=== PATIENT | male | born 1985 | race Caucasian/White ===

== ENCOUNTER 2018-03-30 03:01 | Inpatient (IN) | payer OTHER ==
[~2018-03-30] VITALS: Ht 180.3 cm; Wt 67.1 kg
[2018-03-30 05:25] VITALS: Ht 180.3 cm; Wt 67.1 kg
--- NOTE | 2018-03-30 05:30 | NUR ---
Admitted 32 y/o male from [facility] with CC of worsening Pressure Ulcer. Transported pt via gurney accompanied by 2 EMS and a friend- Nikita. No sob. No resp distress. Alert and oriented x4. Denies pain upon admission. Pt oriented to environment, use telephone, call light and visitation policy. Belongings checked. Called Dr. Gonzalez and made aware of new admission. Needs attended and anticipated. Wound assessment not done, picture taken. Remaining assessment will be done by am shift nurse. For wound care consult, Wound culture and ff-up LALM. Call light within reach. Will continue to monitor pt.
[2018-03-30 06:08] VITALS: BP 106/54; PULSE 101; RESP 20
[2018-03-30] MEDS ORDERED: DOCUSATE SODIUM 100 MG CAP PO PRN (06:30)
[2018-03-30] MEDS ORDERED: ONDANSETRON 4 MG INJ IV PRN (06:30)
[2018-03-30] MEDS ORDERED: NACL 0.9% 3 ML SYG IV SCH (06:30)
[2018-03-30] MEDS ORDERED: BISACODYL (EC) 5 MG TAB PO PRN (06:30)
[2018-03-30] MEDS ORDERED: ACETAMINOPHEN 325 MG TAB PO PRN (06:30)
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
[2018-03-30] MEDS ORDERED: VANCOMYCIN IV PER PHARMACY XX SCH (07:00)
[2018-03-30 07:15] VITALS: BP 128/66; PULSE 61; RESP 16
--- NOTE | 2018-03-30 08:20 | NUR ---
VANCOMYCIN PER PHARMACY NOTE PT WT: 67.1 KG PT HT: 5'11" SKIN ULCER CONFIRMED WITH RPH AT [facility] IN [place] THAT PT RECIEVED VANCO 1GM (14.9 MG/KG) THERE AT 0233 IN THE AM ([facility] PHONE NUMBER [phone]). START MAINTENANCE DOSE OF VANCO 1 GRAM IV [id number] FOR NOW. PHARMACY WILL FOLLOW. THANK YOU.
[2018-03-30] MEDS ORDERED: PIPER-TAZO 2.25 GM (PMX) 50 ML IVPB SCH (08:30)
[2018-03-30] MEDS ORDERED: IOHEXOL 300MG/ML 150 ML BTL ONE (09:05)
[2018-03-30] MEDS ORDERED: SOD CHLORIDE 0.9% 100 ML ONE (09:05)
--- NOTE | 2018-03-30 09:40 | NUR ---
Procedure Ordered:CT ABD/PEL W/CONTRAST Reason for Exam Today:SACRAL ULCERS Previous Exams: Allergies:NKDA Current Medications Taken: Glucophage ( ) Metformin ( ) Previous reaction to contrast media: Yes ( ) No ( X) : Yes ( ) No ( X) Asthma: Yes ( ) No (X ) Diabetes: Yes ( ) No ( X) Myeloma: Yes ( ) No (X ) Heart Disease: Yes ( ) No (X ) Cardiac Disease: Yes ( ) No (X ) Kidney Disease: Yes ( ) No ( X) Vascular Disease: Yes ( ) No ( X) Patient Teaching done: Yes ( ) No ( ) Helmet Hat Brim Cutter Used: Yes ( ) No ( ) Name of Helmet Hat Brim Cutter: Language Used: As part of the test requested by your doctor, contrast media may be injected into your vein while the x-rays are being taken. Occasionally, reactions from IV contrast may occur. The physician and staff of this hospital are trained to treat these reactions. Select the type of Contrast that will be given to patient: Isovue 300 ( ) Isovue 370 ( ) Visipaque ( ) Cystografin ( ) OMNIPAQUE 300 (X) Gastrographin ( ) Redi-cat ( ) Volumen ( ) Amount of contrast to be given: 80CC IV (X ) PO ( ) Date given:03/30/18 Lab Values: BUN: 17 Creatinine:0.85 Reason why contrast cannot be given: Location of patient pre-procedure:[facility] Location of patient post procedure:[facility] PT TOLERATED IV CONTRAST INJECTION WELL
[2018-03-30] MEDS: PIPER-TAZO 3.375 GM IV (PMX) 100 ML IVPB SCH ×3 (09:49→17:43)
[2018-03-30] MEDS: HEPARIN 5,000 UNIT/1 ML VIAL SC SCH ×3 (09:49→22:16)
[2018-03-30] MEDS ORDERED: VANCOMYCIN 1 GM 250 ML IVPB SCH (11:00)
[2018-03-30] MEDS: VANCOMYCIN 750 MG (PMX) 250 ML IVPB SCH ×2 (11:25→19:09)
[2018-03-30] MEDS ORDERED: PENDING SANTYL ORDER FOR WOUND CARE XX PRN (12:30)
[2018-03-30 14:00] VITALS: BP 121/56; PULSE 85; RESP 16
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
--- NOTE | 2018-03-30 17:15 | PN ---
Date/Time of Note Date/Time of Note DATE: 03/30/18 TIME: 17:15 Assessment/Plan VTE Prophylaxis Risk score (from Ns)>0 risk: 4 SCD applied (from Ns): Yes Pharmacological prophylaxis: heparin Lines/Catheters IV [facility]from [facility] Saline Lock Assessment/Plan Hospital Course 32 yo male with paraplegia with decubitus wound infection - Abx per ID - Surgery eval for debridement Result Diagram: 03/30/18 0656 03/30/18 0656 Results 24hrs Laboratory Tests Test 03/30/18 06:56 White Blood Count 8.0 Red Blood Count 4.04 L Hemoglobin 11.4 L Hematocrit 35.9 L Mean Corpuscular Volume 88.9 Mean Corpuscular Hemoglobin 28.2 L Mean Corpuscular Hemoglobin Concent 31.8 L Red Cell Distribution Width 13.2 Platelet Count 265 Mean Platelet Volume 10.0 Immature Granulocytes % 0.300 Neutrophils % 65.8 Lymphocytes % 20.3 Monocytes % 11.4 H Eosinophils % 1.9 Basophils % 0.3 Nucleated Red Blood Cells % 0.0 Immature Granulocytes # 0.020 Neutrophils # 5.3 Lymphocytes # 1.6 Monocytes # 0.9 Eosinophils # 0.2 Basophils # 0.0 Nucleated Red Blood Cells # 0.0 Erythrocyte Sedimentation Rate 30 H Sodium Level 144 Potassium Level 4.2 Chloride Level 103 Carbon Dioxide Level 29 Anion Gap 12 Blood Urea Nitrogen 17 Creatinine 0.85 Est Glomerular Filtrat Rate mL/min > 60 Glucose Level 91 Hemoglobin A1c 5.1 Calcium Level 9.1 Magnesium Level 1.8 Total Bilirubin 0.4 Direct Bilirubin 0.00 Indirect Bilirubin 0.4 Aspartate Amino Transf (AST/SGOT) 13 L Alanine Aminotransferase (ALT/SGPT) 15 Alkaline Phosphatase 82 C-Reactive Protein 6.5 H Total Protein 6.8 Albumin 3.6 Globulin 3.20 Albumin/Globulin Ratio 1.12 Triglycerides Level 64 Cholesterol Level 107 LDL Cholesterol, Calculated 66 HDL Cholesterol 28 Cholesterol/HDL Ratio 3.8 Thyroid Stimulating Hormone (TSH) 1.610 Subjective 24 Hr Interval Summary Free Text/Dictation Comfortable, receiving abx, awaiting surgical eval Exam/Review of Systems Vital Signs Vitals Vital Signs Date Temp Pulse Resp B/P (MAP) Pulse Ox O2 O2 Flow FiO2 Time Delivery Rate 03/30/18 98.4 85 16 121/56 98 Room Air 14:00 (77) Intake and Output 03/29/18 03/29/18 03/30/18 1515:00 23:00 07:00 OutputOutput Total 300 ml BalanceBalance -300 ml Medications Medications Current Medications IV Flush (NS 3 ml) 3 ml PER PROTOCOL IV ; Start 03/30/18 at 06:30 Ondansetron HCl (Zofran Inj) 4 mg Q6H PRN IV NAUSEA; Start 03/30/18 at 06:30 Acetaminophen (Tylenol Tab) 650 mg Q6H PRN PO FEVER GREATER THAN 100.6; Start 03/30/18 at 06:30 Acetaminophen/ Hydrocodone Bitart ([place] (5/325)) 1 tab Q6H PRN PO PAIN LEVEL 4-6; Start 03/30/18 at 06:30 Docusate Sodium (Colace) 100 mg Q12H PRN PO CONSTIPATION; Start 03/30/18 at 06:30 Bisacodyl (Dulcolax) 5 mg DAILY PRN PO CONSTIPATION; Start 03/30/18 at 06:30 Heparin Sodium (Porcine) (Heparin (5000 Units/1ml)) 5,000 unit Q8 SC Last administered on 03/30/18at 13:51; Admin Dose 5,000 UNIT; Start 03/30/18 at 07:30 Vancomycin HCl (Vanco Iv Per Pharmacy) VANCOMYCIN PER PHARMACY PER PROTOCOL XX ; Start 03/30/18 at 07:00 Morphine Sulfate (morphine) 3 mg Q4H PRN PO SEVERE PAIN LEVEL 7-10; Start 03/30/18 at 07:30 Piperacillin Sod/ Tazobactam Sod 100 ml @ 200 mls/hr Q6 IVPB Last administered on 03/30/18at 13:51; Admin Dose 200 MLS/HR; Start 03/30/18 at 08:00 Vancomycin/Sodium Chloride 250 ml @ 125 mls/hr Q8H IVPB Last administered on 03/30/18at 11:25; Admin Dose 125 MLS/HR; Start 03/30/18 at 11:00 Miscellaneous Information (Pending Santyl Order For Wound Care) This patient costa... PRN PRN XX WOUND CARE; Start 03/30/18 at 12:30 Miscellaneous Information (*Rx Drug Level Order Reminder*) VANCO TR LEVEL PRIOR... ONCE ONCE XX ; Start 03/31/18 at 10:00; Stop 03/31/18 at 10:01 Sodium Chloride 1,000 ml @ 1,000 mls/hr Q1H ONCE IV ; Start 03/30/18 at 17:30; Stop 03/30/18 at 18:29 JEAN-CLAUDE MENJIVAR MD Mar 30, 2018 17:15
[2018-03-30] MEDS ORDERED: SOD CHLORIDE 0.9% 1,000 ML IV ONE (17:30)
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
[2018-03-30] MEDS: morphine LIQ (10 MG/5 ML) CUP PO PRN (19:09)
[2018-03-30 19:34] VITALS: BP 106/53; PULSE 78; RESP 20
[2018-03-31] MEDS: PIPER-TAZO 3.375 GM IV (PMX) 100 ML IVPB SCH ×5 (00:14→23:47)
[2018-03-31] MEDS ORDERED: DIPHENHYDRAMINE 50 MG CAP PO ONE (00:30)
[2018-03-31] MEDS ORDERED: BACLOFEN 10 MG TAB PO ONE (00:30)
[2018-03-31 01:52] VITALS: BP 107/51; PULSE 78; RESP 20
[2018-03-31] MEDS: VANCOMYCIN 750 MG (PMX) 250 ML IVPB SCH ×3 (02:51→18:15)
--- NOTE | 2018-03-31 03:52 | NUR ---
pt complained and noted w/ pinpoint redness, scattered on abdominal and chest area. no complaint of itchiness as per pt he does not have sensation on that area. pt on zosyn and vancomycin iv antibiotics. asked pt if he has any allergy to medication , pt states he does not have allergy.notified Dr Gonzalez w/ order to continue antibiotics and give Baclofen 5 mg tab po once and Benadry 50 mg tab once.will continue to monitor
[2018-03-31] MEDS: HEPARIN 5,000 UNIT/1 ML VIAL SC SCH ×3 (06:02→21:48)
--- NOTE | 2018-03-31 06:38 | NUR ---
pt alert,oriented x4, no sob,denies pain. w/ colostomy in place,pt informed nurse will call assistance if he needs to change it. noted to be sitting in bed , refused to be repositioned to sides and offloading of heels. Reinforced teaching purpose of it to prevent new wound and worsening of old ones. still pt refused stating that he feels comfortable in a sitting position in bed and offloading of heels makes him uncomfortable. Asked if we could change the bed to SANA mattress ,pt refused despite educating him regarding purpose of it as he feels the sound of the bed agitates him . charge nurse made aware.
[2018-03-31 07:20] VITALS: BP 100/58; PULSE 67; RESP 16
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
[2018-03-31] MEDS ORDERED: LIDOCAINE 1%/EPI 30 ML INJ INJ STA (11:22)
[2018-03-31] MEDS ORDERED: SILVER NITRATE SWAB TOP ONE (11:30)
[2018-03-31] MEDS ORDERED: LIDOCAINE 1%/EPI (1:100,000) (MDV) 20 ML INJ STA ×2 (12:09→12:26)
--- NOTE | 2018-03-31 13:19 | PN ---
Date/Time of Note Date/Time of Note DATE: 03/31/18 TIME: 13:18 Assessment/Plan VTE Prophylaxis Risk score (from Ns)>0 risk: 5 SCD applied (from Nsg): Yes Pharmacological prophylaxis: heparin Lines/Catheters IV Catheter Type (from Nrsg): Saline Lock Assessment/Plan Hospital Course 32 yo male with paraplegia with decubitus wound infection - Abx per ID - Surgery eval for debridement Result Diagram: 03/30/18 0656 03/30/18 0656 Results 24hrs Laboratory Tests Test 03/31/18 10:09 Vancomycin Level Trough 11.4 Subjective 24 Hr Interval Summary Free Text/Dictation Stable continues on abx awaits debridement by surgery Exam/Review of Systems Exam Vitals Vital Signs Date Temp Pulse Resp B/P (MAP) Pulse Ox O2 O2 Flow FiO2 Time Delivery Rate 03/31/18 98.1 67 16 100/58 100 Room Air 07:20 (72) Intake and Output 03/30/18 03/30/18 03/31/18 1515:00 23:00 07:00 IntakeIntake Total 1050 ml 1750 ml 450 ml BalanceBalance 1050 ml 1750 ml 450 ml Results Results 24hrs Laboratory Tests Test 03/31/18 10:09 Vancomycin Level Trough 11.4 JEAN-CLAUDE MENJIVAR MD Mar 31, 2018 13:19
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
[2018-03-31 14:05] VITALS: BP 118/59; PULSE 70; RESP 16
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
[2018-03-31] MEDS: morphine LIQ (10 MG/5 ML) CUP PO PRN (17:02)
[2018-03-31] MEDS: SODIUM HYPOCHLORITE (1/40) 1 APPLIC BTL IRR SCH (17:02)
[2018-03-31] MEDS: COLLAGENASE 5 GM (UD JAR) TOP SCH (17:03)
--- NOTE | 2018-03-31 17:08 | NUR ---
VANCO PER RX PROTOCOL: DAY #2 S/O: TEMP = 98.7 VANCO TR LEVEL = 11.4 A/P: PT CLEARING VANCO ADEQUATELY. CONTINUE VANCO 750MG Q 8HR FOR NOW. WILL CONTINUE TO FOLLOW.
--- NOTE | 2018-03-31 18:46 | NUR ---
ON ANTIBIOTIC TX VIA IVPB D/T MULTIPLE PRESSURE SORE W/ INFECTIONS NO ADVERSE SIDE EFFECTS, NEW ORDERS FOR WOUND DRESSING NOTED CARRIED OUT AND ABLE TO TOLERATE PROCEDURE WELL. TOMORROW WILL BE I&D OF WOUNDS, CONSENT WAS SIGNED AND ALL OF SUPPLIES NEEDED AT BEDSIDE. NO SOB , NO ACUTE DISTRESS AND VS WITHIN RANGE, WILL CONTINUE POC.
--- NOTE | 2018-03-31 19:06 | NUR ---
1729 Dr. Hood removed dried blister in right heel. Skin is pinkish and dry. Ordered just to put foam dressing. Ordered heel medix to off load bilateral heels. Refused to use heelzup. Stated he tried but it doesn't stay and it "goes up, doesn't help with his back wound". He also refused use wedge pillows. Called transporter to get loss air mattress from 7th floor. Air mattress was available yesterday but he refused. He said he will try today. Reinforced to change position every 2hrs.
[2018-03-31 20:00] VITALS: BP 104/52; PULSE 83; RESP 18
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
[2018-04-01] MEDS: morphine LIQ (10 MG/5 ML) CUP PO PRN ×3 (00:06→21:28)
[2018-04-01 02:00] VITALS: BP 106/59; PULSE 52; RESP 18
[2018-04-01] MEDS: SOD CHLORIDE 0.9% 1,000 ML IV SCH ×2 (02:07→23:07)
[2018-04-01] MEDS: VANCOMYCIN 750 MG (PMX) 250 ML IVPB SCH ×3 (02:34→19:26)
[2018-04-01] MEDS: PIPER-TAZO 3.375 GM IV (PMX) 100 ML IVPB SCH ×2 (05:40→11:39)
[2018-04-01] MEDS: HEPARIN 5,000 UNIT/1 ML VIAL SC SCH ×3 (05:41→21:32)
--- NOTE | 2018-04-01 07:16 | NUR ---
Patient in room asleep with no signs of distress. Vital signs stable. Patient complained of pain x1 this shift. Administered analgesic per MD order; patient denied pain thereafter. Dressings clean, dry, and intact. NS started at 0130 at 50 ml/hr per patient's request and concern of being dehydrated. Condom catheter patent and draining clear, yellow urine. No other changes noted. All needs met and medications administered per MD order. Patient turned every 2 hours and heel floaters in place. Allevyn in place to bony prominences for wound prevention. Safety precautions and hourly rounding currently in place until change of shift.
[2018-04-01 07:20] VITALS: BP 125/67; PULSE 59; RESP 16
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
[2018-04-01] MEDS: COLLAGENASE 5 GM (UD JAR) TOP SCH (08:50)
[2018-04-01] MEDS: SODIUM HYPOCHLORITE (1/40) 1 APPLIC BTL IRR SCH (08:50)
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
--- NOTE | 2018-04-01 11:30 | OPR ---
Date/Time of Note Date/Time of Note DATE: 04/01/18 TIME: 11:22 Operative Report Preoperative Diagnosis 1. Unstageable left trochanter ulcer,7.5 x 5.5 cm 2. Right trochanter unstageable pressure ulcer, 6.5 cm x 2.5 cm Postoperative Diagnosis 1. Left trochanter stage IV pressure ulcer with slough and necrotic tissue, 8 x 6 cm 2. Right trochanter stage IV pressure ulcer with necrotic tissue and slough, 7 x 3.5 cm Operation/Procedure Performed 1. Excisional debridement of left trochanter skin, subcutaneous, muscle/fascia, 8 x 6.2 cm 2. Excisional debridement of right trochanter skin, subcutaneous, muscle/fascia 7 x 3.5 cm Surgeon see signature line Pleater n/a Anesthesia Type: other (None) Estimated Blood Loss: 0 - 10 ml's Transfusion none Specimen Wound culture right and left trochanter Grafts/Implants none Complications none Procedure Description Risks, benefits, alternatives reviewed and agreed upon with patient. Patient placed in right lateral decubitus in his own bed, area prepped and draped in sterile fashion. Timeout was performed. Using scalpel and curette, the necrotic tissue of the left trochanteric skin, subcutaneous, muscle/fascia were debrided to healthier edges. Hemostasis was obtained using silver nitrate and direct applied pressure. Wound was irrigated with Betadine and packed with Betadine soaked gauze. Covered with dry dressing. Patient then placed on left lateral decubitus. Area was prepped and draped in sterile fashion. Using scalpel and curette the necrotic tissue of the right trochanter skin, subcutaneous, muscle/fascia were debrided to healthier edges. Hemostasis was obtained once again using silver nitrate and direct applied pressure. Wound was irrigated with Betadine and packed with Betadine soaked gauze. Covered with dry dressing. MYRNA FRIEDMAN NP Apr 01, 2018 11:30
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
[2018-04-01 14:15] VITALS: BP 138/65; PULSE 53; RESP 18
--- NOTE | 2018-04-01 17:04 | NUR ---
NURSE NOTES: Patient alert and oriented x 4, able to make needs known remained stable throughout the shift. no changes in LOC or mentation. No SOB or distress. Assessed and reassessed for pain. Medicated with Morphine x 1, stated relief. S/P Debridement fo the left and right hip by Suni MCPHERSON specimens were collected and sent to laboratory as ordered. Wound care treatments done, tolerated well. Patient continued to refuse the use of low air loss mattress. Explained to the patient several times the importance of the low air loss mattress but still patient adamantly refused the use of the low air loss mattress. Charge nurse notified. Condom catheter patent with yellowish colored urine. Colostomy bag changes, tolerated well. N abnormalities on the colostomy site. All due medications were given,. tolerated well. Vital signs WNL. Afebrile. Call light answered promptly. Safety precautions observed, hourly rounding done, bed alarm and bed brakes on for safety. call light and telephone within reach at all times. Will continue to monitor. Will endorse accordingly to next shift for continuity of care.
--- NOTE | 2018-04-01 18:54 | NUR ---
awaiting for Vancomycin to be delivered by the pharmacy scheduled for . Called pharmacy per Pharmacy they will send it up. Will endorse to next shift Addendum: 04/01/18 at 1855 by ELMER LYNCH RN clarification of notes: awaiting for Vancomycin to be delivered by the pharmacy scheduled for 1899. Called pharmacy per Pharmacy they will send it up. Will endorse to next shift
[2018-04-01 20:00] VITALS: BP 102/58; PULSE 67; RESP 18
[2018-04-01] MEDS: CEFEPIME 1GM/50 ML (PMX) 50 ML IVPB SCH (21:34)
[2018-04-01] MEDS: HYDROCODONE/APAP (5/325) TAB PO PRN (23:06)
[2018-04-02 02:00] VITALS: BP 99/53; PULSE 64; RESP 18
[2018-04-02] MEDS: VANCOMYCIN 750 MG (PMX) 250 ML IVPB SCH ×2 (03:00→11:02)
[2018-04-02] MEDS: HEPARIN 5,000 UNIT/1 ML VIAL SC SCH ×3 (06:27→21:35)
[2018-04-02] MEDS: morphine LIQ (10 MG/5 ML) CUP PO PRN ×2 (06:29→15:15)
--- NOTE | 2018-04-02 06:57 | NUR ---
RN Notes Patient had no change in condition overnight. Patient is s/p debridement to bilateral hip wounds. Complained intermittently of pain to back and bilateral shoulders. Administered PRN Morphine and [place] as indicated by MD. Upon reassessment, patient asleep, no signs of pain observed. Patient agreed to be repositioned every two hours and as needed; However patient refused to be turned early in the morning. Additionally, patient is refusing to be transferred to a SANA mattress. Explained risks and benefits, however patient adamantly refusing. Patient has condom catheter draining clear, yellow urine. No sediments observed. Colostomy bag changed as needed.
[2018-04-02 08:00] VITALS: BP 111/55; PULSE 60; RESP 20
[2018-04-02] MEDS: CEFEPIME 1GM/50 ML (PMX) 50 ML IVPB SCH ×2 (08:36→20:54)
[2018-04-02] MEDS: COLLAGENASE 5 GM (UD JAR) TOP SCH (08:37)
[2018-04-02] MEDS: SODIUM HYPOCHLORITE (1/40) 1 APPLIC BTL IRR SCH (08:38)
--- NOTE | 2018-04-02 11:30 | NUR ---
is here to see the patient and notified him regarding the muscle spasm patient is having some times.no new orders received at this time.
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
[2018-04-02 15:00] VITALS: BP 114/65; PULSE 56; RESP 17
[2018-04-02] MEDS: AMOXICILLIN 500 MG CAP PO SCH ×2 (15:10→21:30)
--- NOTE | 2018-04-02 16:06 | PN ---
Date/Time of Note Date/Time of Note DATE: 04/02/18 TIME: 16:06 Assessment/Plan VTE Prophylaxis Risk score (from Nsg)>0 risk: 2 SCD applied (from Nsg): Yes Pharmacological prophylaxis: heparin Lines/Catheters IV Catheter Type (from Nrsg): Peripheral IV Urinary Cath still in place: No (condom cath) Assessment/Plan Hospital Course 32 yo male with paraplegia with decubitus wound infection - Abx per ID - Surgery debrided Ready for dc on abx per ID Result Diagram: 03/30/18 0656 04/01/18 0442 Subjective 24 Hr Interval Summary Free Text/Dictation Stable no complaints Exam/Review of Systems Exam Vitals Vital Signs Date Temp Pulse Resp B/P (MAP) Pulse Ox O2 O2 Flow FiO2 Time Delivery Rate 04/02/18 98.8 60 20 111/55 94 08:00 (73) 04/02/18 Room Air 02:00 Intake and Output 04/01/18 04/01/18 04/02/18 1414:59 22:59 06:59 IntakeIntake Total 750 ml 925 ml 1275 ml OutputOutput Total 1400 ml 350 ml 700 ml BalanceBalance -650 ml 575 ml 575 ml Medications Medication Current Medications IV Flush (NS 3 ml) 3 ml PER PROTOCOL IV ; Start 03/30/18 at 06:30 Ondansetron HCl (Zofran Inj) 4 mg Q6H PRN IV NAUSEA; Start 03/30/18 at 06:30 Acetaminophen (Tylenol Tab) 650 mg Q6H PRN PO FEVER GREATER THAN 100.6; Start 03/30/18 at 06:30 Acetaminophen/ Hydrocodone Bitart ([place] (5/325)) 1 tab Q6H PRN PO PAIN LEVEL 4-6 Last administered on 04/01/18at 23:06; Admin Dose 1 TAB; Start 03/30/18 at 06:30 Docusate Sodium (Colace) 100 mg Q12H PRN PO CONSTIPATION; Start 03/30/18 at 06:30 Bisacodyl (Dulcolax) 5 mg DAILY PRN PO CONSTIPATION; Start 03/30/18 at 06:30 Heparin Sodium (Porcine) (Heparin (5000 Units/1ml)) 5,000 unit Q8 SC Last administered on 04/02/18at 13:50; Admin Dose 5,000 UNIT; Start 03/30/18 at 07:30 Morphine Sulfate (morphine) 3 mg Q4H PRN PO SEVERE PAIN LEVEL 7-10 Last a dministered on 04/02/18at 15:15; Admin Dose 3 MG; Start 03/30/18 at 07:30 Miscellaneous Information (Pending Santyl Order For Wound Care) This patient costa... PRN PRN XX WOUND CARE; Start 03/30/18 at 12:30 Collagenase (Santyl) 1 applic DAILY TOP Last administered on 04/02/18at 08:37; Admin Dose 1 APPLIC; Start 03/31/18 at 15:00 Sodium Hypochlorite (Dakin'S (Dilute )) 1 applic DAILY IRR Last adm inistered on 04/02/18at 08:38; Admin Dose 1 APPLIC; Start 03/31/18 at 15:00 Sodium Chloride 1,000 ml @ 50 mls/hr Q20H IV Last administered on 04/01/18 23:07; Admin Dose 50 MLS/HR; Start 04/01/18 at 01:30 Cefepime HCl 50 ml @ 100 mls/hr Q12 IVPB Last administered on 04/02/18 08:36; Admin Dose 100 MLS/HR; Start 04/01/18 at 21:00 Amoxicillin (Amoxicillin) 500 mg Q8 PO Last administered on 04/02/18at 15:10; Admin Dose 500 MG; Start 04/02/18 at 14:00 JEAN-CLAUDE MENJIVAR MD Apr 02, 2018 16:06
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
[2018-04-02] MEDS: SOD CHLORIDE 0.9% 1,000 ML IV SCH (17:30)
--- NOTE | 2018-04-02 18:39 | NUR ---
all needs met.no acute events.turned the patient .encouraged him to turn .some times patient is refusing to turn and he said''i turn by my self to side''.call light within reach.bed alarm on.he is resting comfortably in bed.gave pain medication as reqested.
[2018-04-02] MEDS: HYDROCODONE/APAP (5/325) TAB PO PRN (18:49)
[2018-04-02 20:48] VITALS: BP 123/59; PULSE 65; RESP 17
[2018-04-03] MEDS: SOD CHLORIDE 0.9% 1,000 ML IV SCH ×2 (01:11→21:58)
[2018-04-03 02:00] VITALS: BP 116/56; PULSE 56; RESP 18
[2018-04-03] MEDS: morphine LIQ (10 MG/5 ML) CUP PO PRN (02:48)
[2018-04-03] MEDS: AMOXICILLIN 500 MG CAP PO SCH ×3 (05:59→21:58)
[2018-04-03] MEDS: HEPARIN 5,000 UNIT/1 ML VIAL SC SCH ×3 (06:01→22:03)
[2018-04-03] MEDS: HYDROCODONE/APAP (5/325) TAB PO PRN ×2 (06:27→19:23)
--- NOTE | 2018-04-03 06:42 | NUR ---
End of shift Report: Sitting on bed. NO sob. No resp distress. Pt refused LALM, explained importance, still refused. Charge Nurse aware. Turned and repositioned. Wound care as ordered. S/P debridement of right and left hip, to ff-up wound care order to Surgeon. For wound Consult d/t open Right heel DTI. Medicated for back pain , well-brandon and effective. ATB Therapy well-brandon. No A/R noted. CM to arrange Home Health Wound Care. Colostomy bag changed. No significant changes overnight. Needs attended and anticipated. Call light within reach. Will endorse accordingly.
[2018-04-03 08:13] VITALS: BP 104/55; PULSE 58; RESP 16
[2018-04-03] MEDS: COLLAGENASE 5 GM (UD JAR) TOP SCH (08:31)
[2018-04-03] MEDS: CEFEPIME 1GM/50 ML (PMX) 50 ML IVPB SCH ×2 (08:31→20:43)
[2018-04-03] MEDS: SODIUM HYPOCHLORITE (1/40) 1 APPLIC BTL IRR SCH (08:31)
--- NOTE | 2018-04-03 09:59 | NUR ---
NURSE NOTES: 0943-Received a call from microbiology spoke to Shante with report that patient has Pseudomonas Aeruginosa MDRO on his right hip. Called Dr. Spencer and informed per MD call ID. Also per Dr. Spencer no changes with his wound orders for the right and left hip. Called [facility] [employer] and reported the result. Per [facility] she will come later and will see the patient. no new orders at this time. Patient made aware.
--- NOTE | 2018-04-03 10:27 | NUR ---
Discharge planning; Attempt to follow up with home health services; received call from [facility], unfortunately they cannot provide services due to Patient's location and no available staff around the area. [facility] , spoke with Stephanie and provided three more agencies, referrals sent to; [facility] , faxed to ; [facility] , faxed to ; [facility] , faxed to ; [facility] , faxed to . Will await their review and decision.
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
[2018-04-03 14:54] VITALS: BP 110/58; PULSE 66; RESP 16
--- NOTE | 2018-04-03 18:24 | NUR ---
NURSE NOTES: Patient alert and oriented x 4, able to make needs known remained stable throughout the shift. no changes in LOC or mentation. No SOB or distress. Assessed for pain, denies any pain or discomforts. Wound care treatments done, tolerated well. Patient continued to refuse the use of low air loss mattress. Explained to the patient several times the importance of the low air loss mattress but still patient adamantly refused the use of the low air loss mattress. Condom catheter patent with yellowish colored urine. Colostomy bag changed, tolerated well.. No abnormalities on the colostomy site. All due medications were given. tolerated well. Vital signs WNL. Afebrile. Call light answered promptly. Safety precautions observed, hourly rounding done, bed alarm and bed brakes on for safety. call light and telephone within reach at all times. Will continue to monitor. Will endorse accordingly to next shift for continuity of care.
--- NOTE | 2018-04-03 18:40 | NUR ---
NURSE NOTES: Nikita Vela (Medical Advocate and Emergency Contact) requested if possible that the partners in [email or web address] health could see the patient when discharged with telephone number: with main contact: Allison Hoff tel number: . will notify case technician of the request.
[2018-04-03 20:00] VITALS: BP 108/58; PULSE 86; RESP 18
[2018-04-04 02:00] VITALS: BP 109/58; PULSE 55; RESP 18
[2018-04-04] MEDS: morphine LIQ (10 MG/5 ML) CUP PO PRN ×2 (04:13→18:32)
[2018-04-04] MEDS: AMOXICILLIN 500 MG CAP PO SCH (05:45)
[2018-04-04] MEDS: HEPARIN 5,000 UNIT/1 ML VIAL SC SCH ×3 (05:46→21:51)
--- NOTE | 2018-04-04 06:43 | NUR ---
End of shift Report: Awake on on bed sitting in comfortable position. No sob. No resp distress. Afebrile. Medicated for back pain with DE 11/15 well-brandon and effective. Colostomy care rendered. Contact isolation on wound strictly followed and observed. Pt still refused LALM . Turned and repositioned. Pt refused to bed turned Q2H , explained importance still pt noted with 2x refusal of repositioning. Needs attended and anticipated. Cont ATB Therapy well-brandon. No A/R noted. Wound consult for open DTI on right heel and left ischium stage 3. Will continue to monitor pt. CM to arrange Home Wound Care. Will endorse accordingly. Addendum: 04/04/18 at 2247 by KEERTHI TAYLOR RN clarification of wound above : Blanching redness 1.2 x 1.2 Left Ischium healed pressure injury. wound consult for open DTI on right heel
[2018-04-04] MEDS: CEFEPIME 1GM/50 ML (PMX) 50 ML IVPB SCH ×2 (08:34→20:59)
[2018-04-04] MEDS: SODIUM HYPOCHLORITE (1/40) 1 APPLIC BTL IRR SCH (08:34)
[2018-04-04] MEDS: COLLAGENASE 5 GM (UD JAR) TOP SCH (08:34)
[2018-04-04 08:39] VITALS: BP 115/78; PULSE 44; RESP 18
[2018-04-04 09:33] VITALS: PULSE 56
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
[2018-04-04] MEDS ORDERED: VANCOMYCIN IV PER PHARMACY XX SCH (12:00)
[2018-04-04] MEDS ORDERED: VANCOMYCIN HCL 1.25 GM in SOD CHLORIDE 0.9% 250 ML IVPB SCH (14:30)
[2018-04-04 14:34] VITALS: BP 118/76; PULSE 48; RESP 18
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
--- NOTE | 2018-04-04 16:21 | PN ---
Date/Time of Note Date/Time of Note DATE: 04/04/18 TIME: 16:19 Assessment/Plan VTE Prophylaxis Risk score (from Nsg)>0 risk: 4 Pharmacological prophylaxis: heparin Lines/Catheters IV Catheter Type (from Nrsg): Peripheral IV Urinary Cath still in place: No (condom cath) Assessment/Plan Hospital Course 1. Paraplegia with decubitus wounds Continue antibiotics per ID manager behavioral to arrange for home health for wound care Status post debridement of wound and surgery Prophylaxis: Heparin DC planning: Awaiting home health Result Diagram: 04/01/18 0442 Subjective 24 Hr Interval Summary Constitutional: no complaints Exam/Review of Systems Exam Vitals Vital Signs Date Temp Pulse Resp B/P (MAP) Pulse Ox O2 O2 Flow FiO2 Time Delivery Rate 04/04/18 98.0 48 18 118/76 95 Room Air 14:34 (90) Intake and Output 04/03/18 04/03/18 04/04/18 1515:00 23:00 07:00 IntakeIntake Total 770 ml 1950 ml 450 ml OutputOutput Total 1100 ml 1800 ml 1100 ml BalanceBalance -330 ml 150 ml -650 ml Constitutional: alert, oriented Respiratory: clear to auscultation Cardiovascular: regular rate and rhythm Gastrointestinal: soft; No distended Musculoskeletal: nl extremities to inspection Medications Medication Current Medications IV Flush (NS 3 ml) 3 ml PER PROTOCOL IV ; Start 03/30/18 at 06:30 Ondansetron HCl (Zofran Inj) 4 mg Q6H PRN IV NAUSEA; Start 03/30/18 at 06:30 Acetaminophen (Tylenol Tab) 650 mg Q6H PRN PO FEVER GREATER THAN 100.6; Start 03/30/18 at 06:30 Acetaminophen/ Hydrocodone Bitart ([place] (5/325)) 1 tab Q6H PRN PO PAIN LEVEL 4-6 Last administered on 04/03/18at 19:23; Admin Dose 1 TAB; Start 03/30/18 at 06:30 Docusate Sodium (Colace) 100 mg Q12H PRN PO CONSTIPATION; Start 03/30/18 at 06:30 Bisacodyl (Dulcolax) 5 mg DAILY PRN PO CONSTIPATION; Start 03/30/18 at 06:30 Heparin Sodium (Porcine) (Heparin (5000 Units/1ml)) 5,000 unit Q8 SC Last administered on 04/04/18 14:16; Admin Dose 5,000 UNIT; Start 03/30/18 at 07:30 Morphine Sulfate (morphine) 3 mg Q4H PRN PO SEVERE PAIN LEVEL 7-10 Last administered on 04/04/18 04:13; Admin Dose 3 MG; Start 03/30/18 at 07:30 Miscellaneous Information (Pending Santyl Order For Wound Care) This patient costa... PRN PRN XX WOUND CARE; Start 03/30/18 at 12:30 Collagenase (Santyl) 1 applic DAILY TOP Last administered on 04/04/18 08:34; Admin Dose 1 APPLIC; Start 03/31/18 at 15:00 Sodium Hypochlorite (Dakin'S (Dilute )) 1 applic DAILY IRR Last administered on 04/04/18 08:34; Admin Dose 1 APPLIC; Start 03/31/18 at 15:00 Sodium Chloride 1,000 ml @ 50 mls/hr Q20H IV Last administered on 04/03/18 21:58; Admin Dose 50 MLS/HR; Start 04/01/18 at 01:30 Cefepime HCl 50 ml @ 100 mls/hr Q12 IVPB Last administered on 04/04/18 08:34; Admin Dose 100 MLS/HR; Start 04/01/18 at 21:00 Vancomycin HCl (Vanco Iv Per Pharmacy) VANCOMYCIN PER PHARMACY PER PROTOCOL XX ; Start 04/04/18 at 12:00 Vancomycin HCl 1.25 gm/Sodium Chloride 250 ml @ 83.333 mls/ hr ONCE IVPB Last administered on 04/04/18 14:15; Admin Dose 83.333 MLS/HR; Start 04/04/18 at 14:30; Stop 04/04/18 at 17:29 Vancomycin/Sodium Chloride 250 ml @ 125 mls/hr Q8H IVPB ; Start 04/04/18 at 22:00 Miscellaneous Information (*Rx Drug Level Order Reminder*) VANCO TR LEVEL PRIOR... ONCE ONCE XX ; Start 04/05/18 at 13:00; Stop 04/05/18 at 13:01 MMEO RHOADES Apr 04, 2018 16:21
--- NOTE | 2018-04-04 17:59 | NUR ---
NURSE NOTES: Patient alert and oriented x 4, able to make needs known remained stable throughout the shift. no changes in LOC or mentation. No SOB or distress. Assessed for pain, denies any pain or discomforts. Wound care treatments done, tolerated well. Patient continued to refuse the use of low air loss mattress. Also patient refused to be turned q2H. Explained to the patient several times the importance of the low air loss mattress and the turning and repositioning but still patient adamantly refused the use of the low air loss mattress and to be repositioned every 2 hours. Condom catheter patent with yellowish colored urine. Colostomy bag changed, tolerated well. No abnormalities on the colostomy site. All due medications were given. tolerated well. Vital signs WNL. Afebrile. Call light answered promptly. Safety precautions observed, hourly rounding done, bed alarm and bed brakes on for safety. call light and telephone within reach at all times. Will continue to monitor. Will endorse accordingly to next shift for continuity of care.
[2018-04-04 18:31] VITALS: BP 108/51; PULSE 77; RESP 18
[2018-04-04 20:00] VITALS: BP 121/55; PULSE 57; RESP 17
[2018-04-04] MEDS: VANCOMYCIN 750 MG (PMX) 250 ML IVPB SCH (21:50)
[2018-04-04] MEDS: SOD CHLORIDE 0.9% 1,000 ML IV SCH (21:55)
[2018-04-05 02:00] VITALS: BP 115/60; PULSE 50; RESP 18
[2018-04-05] MEDS: morphine LIQ (10 MG/5 ML) CUP PO PRN (04:57)
[2018-04-05] MEDS: VANCOMYCIN 750 MG (PMX) 250 ML IVPB SCH ×2 (06:12→14:51)
[2018-04-05] MEDS: HEPARIN 5,000 UNIT/1 ML VIAL SC SCH ×2 (06:13→14:00)
--- NOTE | 2018-04-05 06:27 | NUR ---
End of shift Report: Sitting on bed in comfortable position. NO sob. No resp distress. Afebrile. Medicated fro back pain x1. brandon well and effective.. Pt refused LALM, explained importance pt strongly refused to change bed. Q2H repositioning noncompliant as well with episode of refusal every 2 hrs. Wound consult to assess on Right heel open DTI also noted with blanching redness ( 1.2 x 1.2) on healed left ischium pressure injury. Will encouraged pt to turn and repo Q2H. Wound care rendered by am shift nurse, dressing dry and intact. Condom cath in placed, penal are clean and dry, no redness. Colostomy bag intact and patent. Needs attended and anticipated. Kept comfortable at all time. Contact isolation for Pseudomonas AERUGINOSA, MDRO RIGHT HIP strictly followed and observed. Awaiting Home Health. Will continue to monitor. Will endorse accordingly.
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
[2018-04-05 08:00] VITALS: BP_SYST 107; BP_SYST 133; BP_DIAS 51; BP_DIAS 71; PULSE 61; PULSE 64; RESP 18; RESP 20
[2018-04-05] MEDS: CEFEPIME 1GM/50 ML (PMX) 50 ML IVPB SCH (08:21)
[2018-04-05] MEDS: SODIUM HYPOCHLORITE (1/40) 1 APPLIC BTL IRR SCH (08:21)
[2018-04-05] MEDS: COLLAGENASE 5 GM (UD JAR) TOP SCH (08:21)
--- NOTE | 2018-04-05 10:16 | NUR ---
Vancomycin per Rx Random Vancomycin level = 9.4 SCr 5.49 Give Vancomycin 750 mg IV x1 dose today Addendum: 04/05/18 at 1017 by SCARLETT TRIPATHI [facility] PLEASE DISREGARD NOTE. WRONG PATIENT
[2018-04-05] MEDS ORDERED: SAN30GM TOP (11:40)
--- NOTE | 2018-04-05 11:42 | PDOCDIS ---
Discharge Instructions CONDITION [id number] Patient Condition: [id number] Good HOME CARE INSTRUCTIONS: [id number] Diet Instructions: [id number] Regular ACTIVITY: [id number] Activity Restrictions: [id number] No Restrictions FOLLOW UP/APPOINTMENTS Follow-up Plan FOLLOW UP WITH YOUR PCP AND HOME HEALTH AGENCY MEMO RHOADES Apr 05, 2018 11:42
--- NOTE | 2018-04-05 11:47 | NUR ---
SS Note: KEYLA F/U ROXANA received call from KEYLA SCHMIDT Narcisa Noelramakrishna . KEYLA SCHMIDT to f/u with pt she was notified pt is still at the hospital. Addendum: 04/05/18 at 1541 by SHIELA CONTRERAS ROXANA received a call from KEYLA SCHMIDT she is on her way to speak with pt ETA: 16:45. She stated if she is not here by 17:30 okay to d/c pt and she will f/u at home. Addendum: 04/05/18 at 1543 by SHIELA CONTRERAS ROXANA notified RN.
--- NOTE | 2018-04-05 12:03 | NUR ---
WOUND CONSULT FOR RIGHT HEEL OPEN DTPI AND LEFT ISCHIUM AREA: Patient last seen by wound nurse on 03/31/18. - Right Heel non-intact deep tissue injury. Please continuos previous recommendation to Apply Betadine ointment daily cover with foam border dressing. - Left ischial pinkish intact skin. Recommended to keep area dry and clean. Apply 3M Cavilon no-sting skin area every shift for protection. Cover wit foam border dressing and change every 3 days. Discussed plan of care with RN, Moncho. Yamileth Goff BSN RN CWOCN
--- NOTE | 2018-04-05 13:28 | NUR ---
NUTRITION NOTE: Pt with increased nutrient needs for wound healing. Will continue Boost Plus BID, Damian BID and 2pm nourishment. Rec to add MVI/Min and Vit C daily and zinc sulfate x 14 days.
--- NOTE | 2018-04-05 14:25 | NUR ---
VANCOMYCIN PER PHARMACY VANCOMYCIN TROUGH = 13.7 WILL CONTINUE CURRENT REGIMEN OF 750 MG IV Q8H
--- NOTE | 2018-04-05 14:40 | NUR ---
PARAPLEGIC , HOME VIA AMBULANCE AMBULNZ [id number] AUTH # [id number] FROM [facility]YSS[facility] [phone], TRIP # [id number] UNLIMITED [phone] Addendum: 04/05/18 at 1442 by HARIKA WOODARD CM Amended: Links added.
[2018-04-05 14:49] VITALS: BP 124/62; PULSE 76; RESP 18
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
--- NOTE | 2018-04-05 18:50 | NUR ---
rn notes patient discharged home with home health, discharged via ambulance followed by EMT. wound care done and pictures taken, IV line removed. discharge packet given to patient. as per US, printer is down, unable to print pictures at this time.
[2018-04-11] MEDS ORDERED: CEPH-443 PO (20:18)
[2018-04-11] MEDS ORDERED: SULF1TAB31 PO (20:18)
== END 2018-04-05 18:48 | disposition home health service (06) | DRG 580 ==
LOC: PP2 04:55
PROVIDERS: ADMIT Family Medicine; ATTEND Internal Medicine
PROC: 0KBP0ZZ Excision of Left Hip Muscle, Open Approach (ICD-10-PCS; principal; 2018-04-01)
PROC: 0KBN0ZZ Excision of Right Hip Muscle, Open Approach (ICD-10-PCS; 2018-04-01)
DX: L89.224 Pressure ulcer of left hip, stage 4 (principal); G82.20 Paraplegia, unspecified; L89.153 Pressure ulcer of sacral region, stage 3; D64.9 Anemia, unspecified; F20.9 Schizophrenia, unspecified; G62.9 Polyneuropathy, unspecified; L89.214 Pressure ulcer of right hip, stage 4; R23.8 Other skin changes; M21.379 Foot drop, unspecified foot; Z93.3 Colostomy status
CPT/HCPCS: 73610; 73630; 74177; 80053; 80061; 80202; 82565; 83036; 83735; 84443; 84520; 85025; 85651; 86140; 87070; J0692; J1644; J2543; J3370; J7030; J7050; Q9967

== ENCOUNTER 2018-04-25 23:59 | Inpatient (IN) | payer OTHER ==
[~2018-04-25] VITALS: Ht 180.3 cm; Wt 65.1 kg
[~2018-04-25 23:59] MED LIST: CEPH-443 PO; SAN30GM TOP; SULF1TAB31 PO
[2018-04-26] VITALS (7 sets, daily range): BP systolic 111–123; BP diastolic 55–58; PULSE 46–88; RESP 18; Ht 180.3 cm; Wt 65.1 kg
[2018-04-26] MEDS ORDERED: SODIUM CHLORIDE 0.9% 1L BAG IV* STA (03:08)
[2018-04-26] MEDS ORDERED: HYDR-3980 PO (04:45)
[2018-04-26] MEDS ORDERED: GABA100C14 PO (04:45)
[2018-04-26] MEDS ORDERED: ACETAMINOPHEN 325 MG TAB PO PRN (05:00)
[2018-04-26] MEDS ORDERED: MAGNESIUM HYDROXIDE 30ML CUP PO PRN (05:00)
[2018-04-26] MEDS ORDERED: morphine 2 MG INJ IV PRN (05:00)
[2018-04-26] MEDS ORDERED: ONDANSETRON 4 MG INJ IV PRN (05:00)
[2018-04-26] MEDS ORDERED: NACL 0.9% 3 ML SYG IV SCH (05:00)
[2018-04-26] MEDS ORDERED: DOCUSATE SODIUM 100 MG CAP PO PRN (05:00)
--- NOTE | 2018-04-26 05:02 | ERD ---
ER Documentation Chief Complaint Chief Complaint pressure ulcer both buttocks with bloody drainage x 1 week/hx paraplegia HPI This is a 32-year-old paraplegic male with complaints of pressure ulcers of both buttocks that has had purulent drainage and hemorrhagic drainage over the past week. No fevers no chills. No nausea no vomiting. No other current complaints. Patient states that he recently had his wound check, there was no infection. This is approximately 2 weeks ago. Denies any new trauma. Denies any other current issues ROS All systems reviewed and are negative except as per history of present illness. Medications Home Meds Reported Medications Gabapentin* (Gabapentin*) Unknown Strength Capsule, PO TID, #90 CAP 04/26/18 Hydrocodone/Acetaminophen ([place] 10-325 Tablet) 1 Each Tablet, 1 EACH PO PRN for PAIN LEVEL 6-10, TAB 04/26/18 Discontinued Scripts Cephalexin* (Keflex*) 500 Mg Capsule, 500 MG PO QID for 7 Days, CAP Prov:BJ KIM MD 04/11/18 Sulfamethoxazole/Trimethoprim* (Bactrim Ds* Tablet) 1 Each Tablet, 1 TAB PO BID, #14 TAB Prov:BJ KIM MD 04/11/18 Collagenase* (Santyl*) 30 Gm Oint..gm., 1 APPLIC TOP DAILY, #1 TUB Prov:MEMO RHOADES 04/05/18 Allergies Allergies: Coded Allergies: No Known Allergies (Verified Allergy, Unknown, 04/26/18) PMhx/Soc History of Surgery: Yes (spine Sx, colostomy placement, skin graft, right arm SX) Anesthesia Reaction: No Hx Neurological Disorder: Yes (paraplegia) Hx Respiratory Disorders: No Hx Cardiac Disorders: No Hx Psychiatric Problems: Yes (Schizophrenia) Hx Miscellaneous Medical Probl: No Hx Alcohol Use: No Hx Substance Use: No Hx Tobacco Use: No Smoking Status: Never smoker Physical Exam Vitals Vital Signs Date Temp Pulse Resp B/P (MAP) Pulse Ox O2 O2 Flow FiO2 Time Delivery Rate 04/26/18 83 18 99/51 (67) 100 Room Air 03:15 04/26/18 99.8 63 18 161/72 100 00:07 (101) Physical Exam Const: No acute distress Head: Atraumatic Eyes: Normal Conjunctiva ENT: Normal External Ears, Nose and Mouth. Neck: Full range of motion. No meningismus. Resp: Clear to auscultation bilaterally Cardio: Regular rate and rhythm, no murmurs Abd: Soft, non tender, non distended. Normal bowel sounds Skin: No petechiae or rashes Back: No midline or flank tenderness Ext: No cyanosis, or edema Neur: Awake and alert Psych: Normal Mood and Affect Result Diagram: 04/26/18 0346 04/26/18 0346 Results 24 hrs Laboratory Tests Test 04/26/18 03:46 White Blood Count 9.9 10^3/ul Red Blood Count 4.41 10^6/ul Hemoglobin 12.4 g/dl Hematocrit 39.3 % Mean Corpuscular Volume 89.1 fl Mean Corpuscular Hemoglobin 28.1 pg Mean Corpuscular Hemoglobin Concent 31.6 g/dl Red Cell Distribution Width 13.4 % Platelet Count 353 10^3/UL Mean Platelet Volume 9.3 fl Immature Granulocytes % 0.500 % Neutrophils % 75.5 % Lymphocytes % 15.3 % Monocytes % 7.1 % Eosinophils % 1.4 % Basophils % 0.2 % Nucleated Red Blood Cells % 0.0 /100WBC Immature Granulocytes # 0.050 10^3/ul Neutrophils # 7.5 10^3/ul Lymphocytes # 1.5 10^3/ul Monocytes # 0.7 10^3/ul Eosinophils # 0.1 10^3/ul Basophils # 0.0 10^3/ul Nucleated Red Blood Cells # 0.0 10^3/ul Prothrombin Time 14.2 Sec Prothrombin Time Ratio 1.1 INR International Normalized Ratio 1.09 Activated Partial Thromboplast Time 30.1 Sec Sodium Level 143 mmol/L Potassium Level 4.5 mmol/L Chloride Level 102 mmol/L Carbon Dioxide Level 33 mmol/L Anion Gap 8 Blood Urea Nitrogen 19 mg/dl Creatinine 0.84 mg/dl Est Glomerular Filtrat Rate mL/min > 60 mL/min Glucose Level 87 mg/dl Lactic Acid Level 1.5 mmol/L Calcium Level 9.7 mg/dl Total Bilirubin 0.3 mg/dl Direct Bilirubin 0.00 mg/dl Indirect Bilirubin 0.3 mg/dl Aspartate Amino Transf (AST/SGOT) 16 IU/L Alanine Aminotransferase (ALT/SGPT) 14 IU/L Alkaline Phosphatase 95 IU/L Troponin I < 0.012 ng/ml Total Protein 7.5 g/dl Albumin 4.0 g/dl Globulin 3.50 g/dl Albumin/Globulin Ratio 1.14 Current Medications Medications Dose Sig/[place] Start Time Status Last (Trade) Ordered Route PRN Stop Time Admin Dose Reason Admin Sodium 1,980 ml BOLUS OVER 2 04/26/18 DC 04/26/18 Chloride HOURS STAT 03:08 03:57 (NS) IV* 04/26/18 03:09 1 tab Q4 PRN PO 04/26/18 UNV Acetaminophen PAIN LEVEL 05:00 / 6-10 Hydrocodone Bitart ([place] (10/325)) IV Flush 3 ml PER 04/26/18 UNV (NS 3 ml) PROTOCOL IV 05:00 Ondansetron 4 mg Q6H PRN 04/26/18 UNV HCl (Zofran IV 05:00 Inj) NAUSEA/VOMITI NG 650 mg Q6H PRN 04/26/18 UNV Acetaminophen PO .PAIN 1-3 05:00 (Tylenol OR TEMP Tab) Morphine 2 mg Q4H PRN 04/26/18 UNV Sulfate IV .SEVERE 05:00 (morphine) PAIN 7-10 Docusate 100 mg Q12H PRN 04/26/18 UNV Sodium PO 05:00 (Colace) .CONSTIPATION Magnesium 30 ml DAILY PRN 04/26/18 UNV Hydroxide PO 05:00 (Milk Of Mag) .CONSTIPATION 40 mg DAILY@06 04/26/18 UNV Pantoprazole PO 06:00 (Protonix Tab) Procedures/MDM EKG: Rate/Rhythm: [Normal Sinus Rhythm] QRS, ST, T-waves: [No changes consistent w/ acute ischemia] Impression: [No evidence of ischemia or arrhythmia] Chest X-ray 1V Interpreted by me: Soft Tissue: No acute abnormalities Bones: No acute abnormalities Mediastinum/Cardiac Silhouette/Lungs: [No acute abnormalities] Medical decision making: The patient with what looks to be infected decubitus ulcers. At this point will need admission for intravenous antibiotics. Lactic acid is negative, the patient appears no signs of sepsis. Patient will be admitted to the medical surgical floor to the hospitalist group. Departure Diagnosis: Primary Impression: Infected decubitus ulcer Pressure injury stage: unspecified pressure injury stage Qualified Codes: L89.90 - Pressure ulcer of unspecified site, unspecified stage; L08.9 - Local infection of the skin and subcutaneous tissue, unspecified Condition: Serious PETERSON MCPHERSON Apr 26, 2018 05:02
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
[2018-04-26] MEDS: PANTOPRAZOLE (EC) 40 MG TAB PO SCH (07:10)
[2018-04-26] MEDS: GABAPENTIN 300 MG CAP PO SCH ×3 (10:49→21:00)
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
[2018-04-26] MEDS ORDERED: LIDOCAINE 1%/EPI (MDV) 50 ML INJ INJ ONE (11:30)
[2018-04-26] MEDS ORDERED: SILVER NITRATE SWAB TOP ONE (13:00)
[2018-04-26] MEDS ORDERED: LIDOCAINE 1%/EPI 30 ML INJ INJ ONE (14:30)
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
[2018-04-26] MEDS ORDERED: ASCORBIC ACID 500 MG TAB.CHEW PO SCH (15:00)
[2018-04-26] MEDS: ZINC SULFATE 220 MG CAP PO SCH (17:27)
[2018-04-26] MEDS: MULTIVITAMINS THERAPEUTIC TAB PO SCH (17:28)
[2018-04-26] MEDS: ASCORBIC ACID 500 MG TAB PO SCH (17:28)
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
[2018-04-27] VITALS (12 sets, daily range): BP systolic 94–156; BP diastolic 53–77; PULSE 54–98; RESP 18–19
[2018-04-27] MEDS ORDERED: LIDOCAINE 1%/EPI 30 ML INJ INJ SCH
[2018-04-27] MEDS: HYDROCODONE/APAP (10/325) TAB PO PRN ×2 (00:35→16:43)
[2018-04-27] MEDS: PANTOPRAZOLE (EC) 40 MG TAB PO SCH (06:21)
[2018-04-27] MEDS: GABAPENTIN 300 MG CAP PO SCH ×3 (08:34→20:26)
[2018-04-27] MEDS: ZINC SULFATE 220 MG CAP PO SCH (08:34)
[2018-04-27] MEDS: MULTIVITAMINS THERAPEUTIC TAB PO SCH (08:34)
[2018-04-27] MEDS: ASCORBIC ACID 500 MG TAB PO SCH (08:34)
[2018-04-27] MEDS ORDERED: SILVER NITRATE SWAB TOP ONE (09:30)
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
--- NOTE | 2018-04-27 10:21 | OPR ---
Date/Time of Note Date/Time of Note DATE: 04/27/18 TIME: 10:12 Operative Report Free Text/Dictation Date/Time of Note DATE: 04/27/18 TIME: 10:12 Operative Report Preoperative Diagnosis 1. Stage IV left trochanter pressure ulcer,10 x 6 cm 2. Right trochanter pressure ulcer stage IV, 5 cm x 5.2 cm 3. Sacral unstageable pressure ulcer, 9.5 x 5 cm Postoperative Diagnosis 1. Left trochanter stage IV pressure ulcer with slough and necrotic tissue, 10 x 6 cm 2. Right trochanter stage IV pressure ulcer with necrotic tissue and slough, 5 x 5.2 cm 3. Sacral stage III pressure ulcer with necrotic tissue and debris, 9.5 x 5 cm Operation/Procedure Performed 1. Excisional debridement of left trochanter skin, subcutaneous, muscle/fascia, 10 x 6 cm 2. Excisional debridement of right trochanter skin, subcutaneous, muscle/fascia 5 x 5.2 cm 3. Excisional debridement of sacral skin, subcutaneous, 9.5 x 5 cm Surgeon Suni Friedman NP [employer] n/a Anesthesia Type: other (None) Estimated Blood Loss: <10 ml's Transfusion none Specimen Wound culture right and left trochanter and sacrum Grafts/Implants none Complications none Procedure Description Risks, benefits, alternatives reviewed and agreed upon with patient. Patient placed in right lateral decubitus in his own bed, areas prepped and draped in sterile fashion. Timeout was performed. Using scalpel and curette, the necrotic tissue of the left trochanteric skin, subcutaneous, muscle/fascia were debrided to healthier edges. Hemostasis was obtained using silver nitrate and direct applied pressure. Wound was irrigated with Betadine and packed with Betadine soaked gauze. Covered with dry dressing. Using scalpel and curette, the necrotic tissue and debris of the sacrum skin and subcutaneous were debrided to healthier edges. Hemostasis was obtained using direct applied pressure and silver nitrate. Patient then placed on left lateral decubitus. Area was prepped and draped in sterile fashion. Using scalpel and curette the necrotic tissue of the right trochanter skin, subcutaneous, muscle/fascia were debrided to healthier edges. Hemostasis was obtained once again using silver nitrate and direct applied pressure. Wound was irrigated with Betadine and packed with Betadine soaked gauze. Covered with dry dressing. SUNI FRIEDMAN NP Apr 27, 2018 10:21
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
[2018-04-27] MEDS: BALSAM PERU/CASTOR OIL 60 GM TUBE TOP SCH (11:58)
[2018-04-27] MEDS: morphine LIQ (10 MG/5 ML) CUP PO PRN ×2 (11:58→20:27)
[2018-04-27] MEDS: IBUPROFEN 400 MG TAB PO SCH ×2 (14:41→18:57)
[2018-04-27] MEDS: SODIUM HYPOCHLORITE (1/40) 1 APPLIC BTL IRR SCH (20:37)
[2018-04-28] MEDS: IBUPROFEN 400 MG TAB PO SCH ×4 (00:33→18:58)
[2018-04-28] MEDS: morphine LIQ (10 MG/5 ML) CUP PO PRN ×4 (00:34→21:39)
[2018-04-28] MEDS: PANTOPRAZOLE (EC) 40 MG TAB PO SCH (05:37)
[2018-04-28 07:02] VITALS: BP 106/58; PULSE 70; RESP 18
[2018-04-28 07:39] VITALS: BP 99/58; PULSE 70; RESP 18
[2018-04-28] MEDS: ZINC SULFATE 220 MG CAP PO SCH (08:36)
[2018-04-28] MEDS: GABAPENTIN 300 MG CAP PO SCH ×3 (08:36→21:39)
[2018-04-28] MEDS: ASCORBIC ACID 500 MG TAB PO SCH (08:36)
[2018-04-28] MEDS: ENOXAPARIN 30 MG/0.3 ML SYG SC SCH (09:01)
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
[2018-04-28] MEDS: MULTIVITAMINS THERAPEUTIC TAB PO SCH (12:14)
[2018-04-28] MEDS: BALSAM PERU/CASTOR OIL 60 GM TUBE TOP SCH (12:15)
[2018-04-28] MEDS: SODIUM HYPOCHLORITE (1/40) 1 APPLIC BTL IRR SCH ×2 (12:15→21:40)
[2018-04-28 14:30] VITALS: BP 97/52; PULSE 68; RESP 18
[2018-04-28 20:00] VITALS: BP 136/60; PULSE 70; RESP 18
--- NOTE | 2018-04-28 23:04 | PN ---
Date/Time of Note Date/Time of Note DATE: 04/28/18 TIME: 23:04 Assessment/Plan VTE Prophylaxis Risk score (from Nsg)>0 risk: 5 Pharmacological prophylaxis: other Lines/Catheters IV Catheter Type (from Nrsg): Saline Lock Assessment/Plan Assessment/Plan Stage I pressure sore, bilateral heels. Paraplegia. Equinus contracture. Plan Consent was obtained and performed bedside excisional debridement of skin/subQ of bilateral heel pressure ulcer sites. Time out was performed. Greater than 20cm2 of area was debrided. Devitalized skin and biofilm was removed. Copious irrigation used at each ulcer site and betadine adaptic, 4x4 gauze, kerlix and latasha wraps applied. Emphasized strict offloading with prevalon soft boots and pillows. Ankle x-rays pending. Result Diagram: 04/28/1845004/28/180 Results 24hrs Laboratory Tests Test 04/28/18 04:50 04/28/18 04:51 Sodium Level 140 Potassium Level 4.6 Chloride Level 101 Carbon Dioxide Level 29 Anion Gap 10 # Blood Urea Nitrogen 24 H Creatinine 0.78 Est Glomerular Filtrat Rate mL/min > 60 Glucose Level 92 Calcium Level 9.4 White Blood Count 7.1 Red Blood Count 4.17 L Hemoglobin 11.6 L Hematocrit 37.0 L Mean Corpuscular Volume 88.7 Mean Corpuscular Hemoglobin 27.8 L Mean Corpuscular Hemoglobin Concent 31.4 L Red Cell Distribution Width 13.8 Platelet Count 319 Mean Platelet Volume 9.5 Immature Granulocytes % 0.300 Neutrophils % 62.3 Lymphocytes % 22.0 Monocytes % 9.8 Eosinophils % 5.2 Basophils % 0.4 Nucleated Red Blood Cells % 0.0 Immature Granulocytes # 0.020 Neutrophils # 4.5 Lymphocytes # 1.6 Monocytes # 0.7 Eosinophils # 0.4 Basophils # 0.0 Nucleated Red Blood Cells # 0.0 Subjective 24 Hr Interval Summary Free Text/Dictation No acute events overnight. Exam/Review of Systems Exam Vitals Vital Signs Date Temp Pulse Resp B/P (MAP) Pulse Ox O2 O2 Flow FiO2 Time Delivery Rate 04/28/18 97.4 70 18 136/60 98 Room Air 20:00 (85) Intake and Output 04/27/18 04/27/18 04/28/18 1515:00 23:00 07:00 IntakeIntake Total 600 ml 240 ml OutputOutput Total 1200 ml BalanceBalance -600 ml 240 ml Exam bilateral heels with stage I pressure sores, right posterior heel 5 x 10 cm hematoma with epidermolysis of skin to the periphery of the hematoma, left posterior heel seroma 1.5 x 2 cm and erythema surrounding the seroma. A 2+ DP, PT pulse. No signs of cellulitis or lymphangitis. The patient is with a flaccid equinus contracture, bilateral ankles. Results Results 24hrs Laboratory Tests Test 04/28/18 04:50 04/28/18 04:51 Sodium Level 140 Potassium Level 4.6 Chloride Level 101 Carbon Dioxide Level 29 Anion Gap 10 # Blood Urea Nitrogen 24 H Creatinine 0.78 Est Glomerular Filtrat Rate mL/min > 60 Glucose Level 92 Calcium Level 9.4 White Blood Count 7.1 Red Blood Count 4.17 L Hemoglobin 11.6 L Hematocrit 37.0 L Mean Corpuscular Volume 88.7 Mean Corpuscular Hemoglobin 27.8 L Mean Corpuscular Hemoglobin Concent 31.4 L Red Cell Distribution Width 13.8 Platelet Count 319 Mean Platelet Volume 9.5 Immature Granulocytes % 0.300 Neutrophils % 62.3 Lymphocytes % 22.0 Monocytes % 9.8 Eosinophils % 5.2 Basophils % 0.4 Nucleated Red Blood Cells % 0.0 Immature Granulocytes # 0.020 Neutrophils # 4.5 Lymphocytes # 1.6 Monocytes # 0.7 Eosinophils # 0.4 Basophils # 0.0 Nucleated Red Blood Cells # 0.0 Medications Medication Current Medications Acetaminophen/ Hydrocodone Bitart ([place] (10325)) 1 tab Q4 PRN PO PAIN LEVEL 6-10 Last administered on 04/27/18at 16:43; Admin Dose 1 TAB; Start 04/26/18 at 05:00 IV Flush (NS 3 ml) 3 ml PER PROTOCOL IV ; Start 04/26/18 at 05:00 Ondansetron HCl (Zofran Inj) 4 mg Q6H PRN IV NAUSEA/VOMITING Last administered on 04/28/18at 08:36; Admin Dose 4 MG; Start 04/26/18 at 05:00 Acetaminophen (Tylenol Tab) 650 mg Q6H PRN PO .PAIN 1-3 OR TEMP; Start 04/26/18 at 05:00 Docusate Sodium (Colace) 100 mg Q12H PRN PO .CONSTIPATION; Start 04/26/18 at 05:00 Magnesium Hydroxide (Milk Of Mag) 30 ml DAILY PRN PO .CONSTIPATION; Start 04/26/18 at 05:00 Pantoprazole (Protonix Tab) 40 mg DAILY@06 PO Last administered on 04/28/18 05:37; Admin Dose 40 MG; Start 04/26/18 at 06:00 Gabapentin (Neurontin) 300 mg TID PO Last administered on 04/28/18 21:39; Admi n Dose 300 MG; Start 04/26/18 at 09:00 Zinc Sulfate (Zinc Sulfate) 220 mg DAILY PO Last administered on 04/28/18 08:36; Admin Dose 220 MG; Start 04/26/18 at 15:00 Multivitamins Therapeutic (Theragran) 1 tab DAILY PO Last administered on 04/28/18 12:14; Admin Dose 1 TAB; Start 04/26/18 at 15:00 Ascorbic Acid (Vitamin C) 500 mg DAILY PO Last administered on 04/28/18 08:36; Admin Dose 500 MG; Start 04/26/18 at 17:00 Morphine Sulfate (morphine) 6 mg Q4H PRN PO SEVERE PAIN LEVEL 7-10 Last admi nistered on 04/28/18 21:39; Admin Dose 6 MG; Start 04/26/18 at 23:00 Sodium Hypochlorite (Dakin'S (Dilute )) 1 applic BID IRR Last administered on 04/28/18 21:40; Admin Dose 1 APPLIC; Start 04/27/18 at 21:00 Enoxaparin Sodium (Lovenox) 30 mg DAILY SC Last administered on 04/28/18 09:01; Admin Dose 30 MG; Start 04/28/18 at 09:00 Ibuprofen (Motrin) 400 mg Q6 PO Last administered on 04/28/18 18:58; Admin Dose 400 MG; Start 04/27/18 at 14:30 TRIXIE GOTTLIEB DPM Apr 28, 2018 23:04
[2018-04-28] MEDS: HYDROCODONE/APAP (10/325) TAB PO PRN (23:42)
[2018-04-29 02:00] VITALS: BP 124/63; PULSE 68; RESP 18
[2018-04-29] MEDS: IBUPROFEN 400 MG TAB PO SCH ×4 (02:01→18:00)
[2018-04-29] MEDS: PANTOPRAZOLE (EC) 40 MG TAB PO SCH (06:04)
[2018-04-29] MEDS: morphine LIQ (10 MG/5 ML) CUP PO PRN ×3 (06:05→16:32)
[2018-04-29 07:19] VITALS: BP 100/53; PULSE 61; RESP 18
[2018-04-29] MEDS: GABAPENTIN 300 MG CAP PO SCH ×2 (08:45→12:23)
[2018-04-29] MEDS: ASCORBIC ACID 500 MG TAB PO SCH (08:45)
[2018-04-29] MEDS: ZINC SULFATE 220 MG CAP PO SCH (08:45)
[2018-04-29] MEDS: MULTIVITAMINS THERAPEUTIC TAB PO SCH (08:45)
[2018-04-29] MEDS: SODIUM HYPOCHLORITE (1/40) 1 APPLIC BTL IRR SCH (08:45)
[2018-04-29] MEDS: BALSAM PERU/CASTOR OIL 60 GM TUBE TOP SCH (08:45)
[2018-04-29] MEDS: HYDROCODONE/APAP (10/325) TAB PO PRN ×2 (08:57→14:48)
[2018-04-29] MEDS: ENOXAPARIN 30 MG/0.3 ML SYG SC SCH (09:07)
--- NOTE | 2018-04-29 10:14 | PSY ---
Date/Time of Note Date/Time of Note DATE: 04/29/18 TIME: 10:06 Psychiatric Subjective Eval Consent Pt consented to telemedicine: No Subjective Evaluation Patient location: inpatient Chief Complaint: pressure ulcer both buttocks with bloody drainage x 1 week/hx paraplegia History of present illness Patient is a 32 year old with medical history of paraplegia . Hospitalization: other Medical history Problems Medical Problems: (1) Infected decubitus ulcer Status: Acute (2) Pressure ulcer Status: Acute Allergies: Coded Allergies: No Known Allergies (Verified Allergy, Unknown, 04/26/18) Substance Abuse Substance abuse history: No Prior substance abuse treatmen: No Psychiatric Objective Eval Mental Status Examination: Laboratory Results Laboratory Tests Test 04/28/18 04:50 04/28/18 04:51 Sodium Level 140 mmol/L Potassium Level 4.6 mmol/L Chloride Level 101 mmol/L Carbon Dioxide Level 29 mmol/L Anion Gap 10 Blood Urea Nitrogen 24 mg/dl Creatinine 0.78 mg/dl Est Glomerular Filtrat Rate mL/min > 60 mL/min Glucose Level 92 mg/dl Calcium Level 9.4 mg/dl White Blood Count 7.1 10^3/ul Red Blood Count 4.17 10^6/ul Hemoglobin 11.6 g/dl Hematocrit 37.0 % Mean Corpuscular Volume 88.7 fl Mean Corpuscular Hemoglobin 27.8 pg Mean Corpuscular Hemoglobin Concent 31.4 g/dl Red Cell Distribution Width 13.8 % Platelet Count 319 10^3/UL Mean Platelet Volume 9.5 fl Immature Granulocytes % 0.300 % Neutrophils % 62.3 % Lymphocytes % 22.0 % Monocytes % 9.8 % Eosinophils % 5.2 % Basophils % 0.4 % Nucleated Red Blood Cells % 0.0 /100WBC Immature Granulocytes # 0.020 10^3/ul Neutrophils # 4.5 10^3/ul Lymphocytes # 1.6 10^3/ul Monocytes # 0.7 10^3/ul Eosinophils # 0.4 10^3/ul Basophils # 0.0 10^3/ul Nucleated Red Blood Cells # 0.0 10^3/ul MANJULA LEONARD NP Apr 29, 2018 10:14
--- NOTE | 2018-04-29 10:46 | PDOCDIS ---
Discharge Instructions CONDITION [id number] Patient Condition: [id number] Stable HOME CARE INSTRUCTIONS: [id number] Diet Instructions: [id number] Regular FOLLOW UP/APPOINTMENTS Follow-up Plan Follow-up with [facility] amputation prevention [facility] on Wednesday Daily wound care as instructed to home health nurse ARTHUR SERRA NP Apr 29, 2018 10:46
[2018-04-29] MEDS ORDERED: GABA300C16 PO (10:49)
[2018-04-29] MEDS ORDERED: ASC500 PO (10:49)
[2018-04-29] MEDS ORDERED: LEVO500T48 PO (10:49)
[2018-04-29] MEDS ORDERED: ZINC220C5 PO (10:49)
[2018-04-29] MEDS ORDERED: MULTI PO (10:49)
[2018-04-29] MEDS ORDERED: IBUP-1541 PO (10:49)
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
[2018-04-29] MEDS ORDERED: LEVOFLOXACIN 500 MG TAB PO SCH (11:00)
[2018-04-29] MEDS ORDERED: SOD CHLORIDE 0.9% 250 ML IV ONE (11:00)
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
[2018-04-29 14:30] VITALS: BP 99/56; PULSE 60; RESP 18
--- NOTE | 2018-04-29 16:29 | PN ---
Date/Time of Note Date/Time of Note DATE: 04/29/18 TIME: 16:29 Assessment/Plan VTE Prophylaxis Risk score (from Nsg)>0 risk: 5 Pharmacological prophylaxis: other Lines/Catheters IV Catheter Type (from Nrsg): Saline Lock Assessment/Plan Assessment/Plan Stage I pressure sore, bilateral heels. Paraplegia. Equinus contracture. Plan Continue with daily dressing changes with betadine adaptic, 4x4 gauze, kerlix and latasha wraps applied. Emphasized strict offloading with prevalon soft boots and pillows. Ankle x-rays reviewed with patient and discussed that there was no osseous impingement to his ankle ROM and likely related to tight calf muscles causing his equinus. Discussed physical therapy for manually stretching exercises to improve ROM. Patient not amenable to surgical tendon achilles lengthening. Follow up in outpatient [facility] clinic Result Diagram: 04/28/1845004/28/18449 Subjective 24 Hr Interval Summary Free Text/Dictation No acute events overnight Exam/Review of Systems Exam Vitals Vital Signs Date Temp Pulse Resp B/P (MAP) Pulse Ox O2 O2 Flow FiO2 Time Delivery Rate 04/29/18 98.5 60 18 99/56 (70) 97 14:30 04/29/18 Room Air 02:00 Intake and Output 04/28/18 04/28/18 04/29/18 1414:59 22:59 06:59 IntakeIntake Total 600 ml 360 ml 360 ml OutputOutput Total 600 ml 800 ml BalanceBalance 0 ml -440 ml 360 ml Exam bilateral heels with stage I pressure sores, right posterior heel 5 x 10 cm hematoma with epidermolysis of skin to the periphery of the hematoma, left posterior heel seroma 1.5 x 2 cm and erythema surrounding the seroma. A 2+ DP, PT pulse. No signs of cellulitis or lymphangitis. The patient is with a flaccid equinus contracture, bilateral ankles. Medications Medication Current Medications Acetaminophen/ Hydrocodone Bitart ([place] (10/325)) 1 tab Q4 PRN PO PAIN LEVEL 6-10 Last administered on 04/29/18at 14:48; Admin Dose 1 TAB; Start 04/26/18 at 05:00 IV Flush (NS 3 ml) 3 ml PER PROTOCOL IV ; Start 04/26/18 at 05:00 Ondansetron HCl (Zofran Inj) 4 mg Q6H PRN IV NAUSEA/VOMITING Last administered on 04/28/18 08:36; Admin Dose 4 MG; Start 04/26/18 at 05:00 Acetaminophen (Tylenol Tab) 650 mg Q6H PRN PO .PAIN 1-3 OR TEMP; Start 04/26/18 at 05:00 Docusate Sodium (Colace) 100 mg Q12H PRN PO .CONSTIPATION; Start 04/26/18 at 05:00 Magnesium Hydroxide (Milk Of Mag) 30 ml DAILY PRN PO .CONSTIPATION; Start 04/26/18 at 05:00 Pantoprazole (Protonix Tab) 40 mg DAILY@06 PO Last administered on 04/29/18 06:04; Admin Dose 40 MG; Start 04/26/18 at 06:00 Gabapentin (Neurontin) 300 mg TID PO Last administered on 04/29/18 12:23; Admin Dose 300 MG; Start 04/26/18 at 09:00 Zinc Sulfate (Zinc Sulfate) 220 mg DAILY PO Last administered on 04/29/18 08:45; Admin Dose 220 MG; Start 04/26/18 at 15:00 Multivitamins Therapeutic (Theragran) 1 tab DAILY PO Last administered on 04/29/18 08:45; Admin Dose 1 TAB; Start 04/26/18 at 15:00 Ascorbic Acid (Vitamin C) 500 mg DAILY PO Last administered on 04/29/18 08:45; Admin Dose 500 MG; Start 04/26/18 at 17:00 Morphine Sulfate (morphine) 6 mg Q4H PRN PO SEVERE PAIN LEVEL 7-10 Last adminis tered on 04/29/18 12:24; Admin Dose 6 MG; Start 04/26/18 at 23:00 Sodium Hypochlorite (Dakin'S (Dilute 40)) 1 applic BID IRR Last administered on 04/29/18 08:45; Admin Dose 1 APPLIC; Start 04/27/18 at 21:00 Enoxaparin Sodium (Lovenox) 30 mg DAILY SC Last administered on 04/29/18 09:07; Admin Dose 30 MG; Start 04/28/18 at 09:00 Ibuprofen (Motrin) 400 mg Q6 PO Last administered on 04/29/18 11:30; Admin Dose 400 MG; Start 04/27/18 at 14:30 Levofloxacin (Levaquin) 500 mg DAILY@06 PO Last administered on 04/29/18at 11:31; Admin Dose 500 MG; Start 04/29/18 at 11:00; Stop 05/13/18 at 10:59 TRIXIE GOTTLIEB DPM Apr 29, 2018 16:29
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
== END 2018-04-29 18:40 | disposition home health service (06) | DRG 571 ==
LOC: E/R 23:59 → TEL 04-26 04:43 → 2NE 04-27 20:25
PROVIDERS: ADMIT Internal Medicine; ATTEND Internal Medicine
PROC: 0KBP0ZZ Excision of Left Hip Muscle, Open Approach (ICD-10-PCS; principal; 2018-04-27)
PROC: 0JB70ZZ Excision of Back Subcutaneous Tissue and Fascia, Open Approach (ICD-10-PCS; 2018-04-27)
PROC: 0KBN0ZZ Excision of Right Hip Muscle, Open Approach (ICD-10-PCS; 2018-04-27)
PROC: 0JBR0ZZ Excision of Left Foot Subcutaneous Tissue and Fascia, Open Approach (ICD-10-PCS; 2018-04-28)
PROC: 0JBQ0ZZ Excision of Right Foot Subcutaneous Tissue and Fascia, Open Approach (ICD-10-PCS; 2018-04-28)
DX: L89.44 Pressure ulcer of contiguous site of back, buttock and hip, stage 4 (principal); G82.20 Paraplegia, unspecified; L89.153 Pressure ulcer of sacral region, stage 3; F20.9 Schizophrenia, unspecified; L89.621 Pressure ulcer of left heel, stage 1; L89.611 Pressure ulcer of right heel, stage 1; L89.224 Pressure ulcer of left hip, stage 4; L89.214 Pressure ulcer of right hip, stage 4; D64.9 Anemia, unspecified; M24.576 Contracture, unspecified foot; B96.5 Pseudomonas (aeruginosa) (mallei) (pseudomallei) as the cause of diseases classified elsewhere; B96.4 Proteus (mirabilis) (morganii) as the cause of diseases classified elsewhere; B95.2 Enterococcus as the cause of diseases classified elsewhere; Z93.3 Colostomy status; Z99.3 Dependence on wheelchair
CPT/HCPCS: 36415; 71045; 73610; 80048; 80053; 83605; 83735; 84100; 84484; 85025; 85610; 85730; 87040; 87070; 93005; J1650; J2405; J7030; J7040

== ENCOUNTER 2018-05-07 01:21 | Inpatient (IN) | payer OTHER ==
[~2018-05-07] VITALS: Ht 182.9 cm; Wt 65.9 kg
[~2018-05-07 01:21] MED LIST changes: +ASC500 PO; -CEPH-443 PO; +GABA300C16 PO; +HYDR-3980 PO; +IBUP-1541 PO; +LEVO500T48 PO; +MULTI PO; -SAN30GM TOP; -SULF1TAB31 PO; +ZINC220C5 PO
[2018-05-07 01:32] VITALS: Ht 182.9 cm; Wt 65.9 kg
[2018-05-07] MEDS ORDERED: SODIUM CHLORIDE 0.9% 1L BAG IV* STA (06:57)
[2018-05-07] MEDS ORDERED: VANCOMYCIN IV PER PHARMACY XX SCH (09:00)
[2018-05-07] MEDS ORDERED: hydrALAzine 20 MG INJ IV PRN (09:00)
[2018-05-07] MEDS ORDERED: ONDANSETRON 4 MG INJ IV PRN (09:00)
[2018-05-07] MEDS ORDERED: DOCUSATE SODIUM 100 MG CAP PO PRN (09:00)
[2018-05-07] MEDS ORDERED: morphine 2 MG INJ IV PRN (09:00)
[2018-05-07] MEDS ORDERED: ALBUTEROL/IPRATROPIUM (NEB) 3 ML AMP HHN PRN (09:00)
[2018-05-07] MEDS ORDERED: LORAZEPAM 2 MG INJ IV PRN (09:00)
[2018-05-07] MEDS ORDERED: PIPER-TAZO 3.375 GM IV (PMX) 100 ML IVPB ONE (09:00)
[2018-05-07] MEDS ORDERED: MAGNESIUM HYDROXIDE 30ML CUP PO PRN (09:00)
[2018-05-07] MEDS ORDERED: NITROGLYCERIN (SL) 0.4 MG TAB SL PRN (09:00)
[2018-05-07] MEDS ORDERED: NACL 0.9% 3 ML SYG IV SCH (09:00)
[2018-05-07] MEDS ORDERED: VANCOMYCIN 1 GM in 250 ML IVPB ONE (10:00)
--- NOTE | 2018-05-07 10:44 | ERD ---
ER Documentation Chief Complaint Chief Complaint MULTIPLE PRESSURE WOUNDS HPI This is a 32-year-old paraplegic bedbound man complaining of continued bilateral infected hip ulcers with malodorous discharge over the last few days. He was recently admitted into this hospital and upon discharge he was told that he would have a visiting nurse clean the wounds daily although he states due to insurance issues a nurse never showed up to his house and he has had no cleaning for over a week. He has had tactile fevers and continued malodorous discharge, no chest pain or shortness of breath, no cough, no headache or blurry vision. ROS All systems reviewed and are negative except as per history of present illness. Medications Home Meds Active Scripts Multivitamins* (Theragran*) 1 Tab Tab, 1 TAB PO DAILY, #30 TAB Prov:SERRA,ARTHUR V. NURSING HOME PHYSICIAN 04/29/18 Ascorbic Acid (Vitamin C) 500 Mg Tab, 500 MG PO DAILY, #30 TAB Prov:SERRA,ARTHUR V. NURSING HOME PHYSICIAN 04/29/18 Gabapentin* (Gabapentin*) 300 Mg Capsule, 300 MG PO TID, #90 CAP Prov:SERRA,ARTHUR V. NURSING HOME PHYSICIAN 04/29/18 Zinc Sulfate* (Zinc Sulfate*) 220 Mg Cap, 220 MG PO DAILY, #30 CAP Prov:SERRA,ARTHUR V. NURSING HOME PHYSICIAN 04/29/18 Ibuprofen* (Ibuprofen*) 400 Mg Tablet, 400 MG PO Q6 PRN for PAIN, #30 TAB Prov:SERRA,ARTHUR V. NURSING HOME PHYSICIAN 04/29/18 Levofloxacin* (Levaquin*) 500 Mg Tablet, 500 MG PO DAILY@06 for 14 Days, #28 TAB Prov:SERRA,ARTHUR V. NURSING HOME PHYSICIAN 04/29/18 Reported Medications Hydrocodone/Acetaminophen ([place] 10-325 Tablet) 1 Each Tablet, 1 EACH PO PRN for PAIN LEVEL 6-10, TAB 04/26/18 Allergies Allergies: Coded Allergies: No Known Allergies (Verified Allergy, Unknown, 04/26/18) PMhx/Soc Paraplegia, hip ulcers History of Surgery: Yes (SPINE 2018 ) Anesthesia Reaction: No Hx Neurological Disorder: No Hx Respiratory Disorders: No Hx Cardiac Disorders: No Hx Psychiatric Problems: No Hx Miscellaneous Medical Probl: No Hx Alcohol Use: No Hx Substance Use: No Hx Tobacco Use: No Smoking Status: Never smoker FmHx Family History: No diabetes Physical Exam Vitals Vital Signs Date Temp Pulse Resp B/P (MAP) Pulse Ox O2 O2 Flow FiO2 Time Delivery Rate 05/07/18 99.8 105 16 95/52 (66) 100 01:32 Physical Exam Const: No acute distress, afebrile Head: Atraumatic Eyes: Normal Conjunctiva ENT: Normal External Ears, Nose and Mouth. Neck: Full range of motion. No meningismus. Resp: Clear to auscultation bilaterally Cardio: Tachycardic and regular, no murmurs Abd: Soft, non tender, non distended. Normal bowel sounds Skin: Large bilateral hip ulcerations measuring between 4-6 cm across with thick malodorous purulent discharge noted, musculature visible Back: No midline or flank tenderness Ext: No cyanosis, or edema Neur: Awake and alert x3, no focal deficits or facial asymmetry Psych: Normal Mood and Affect Result Diagram: 05/07/18 0710 05/07/18 0710 Results 24 hrs Laboratory Tests Test 05/07/18 07:10 05/07/18 07:47 White Blood Count 13.3 10^3/ul Red Blood Count 4.98 10^6/ul Hemoglobin 13.7 g/dl Hematocrit 43.9 % Mean Corpuscular Volume 88.2 fl Mean Corpuscular Hemoglobin 27.5 pg Mean Corpuscular Hemoglobin Concent 31.2 g/dl Red Cell Distribution Width 13.7 % Platelet Count 449 10^3/UL Mean Platelet Volume 9.6 fl Immature Granulocytes % 0.500 % Neutrophils % 74.7 % Lymphocytes % 16.2 % Monocytes % 7.2 % Eosinophils % 1.0 % Basophils % 0.4 % Nucleated Red Blood Cells % 0.0 /100WBC Immature Granulocytes # 0.070 10^3/ul Neutrophils # 9.9 10^3/ul Lymphocytes # 2.2 10^3/ul Monocytes # 1.0 10^3/ul Eosinophils # 0.1 10^3/ul Basophils # 0.1 10^3/ul Nucleated Red Blood Cells # 0.0 10^3/ul Prothrombin Time 13.9 Sec Prothrombin Time Ratio 1.1 INR International Normalized Ratio 1.06 Activated Partial Thromboplast Time 32.0 Sec Sodium Level 143 mmol/L Potassium Level 4.2 mmol/L Chloride Level 105 mmol/L Carbon Dioxide Level 28 mmol/L Anion Gap 10 Blood Urea Nitrogen 20 mg/dl Creatinine 0.76 mg/dl Est Glomerular Filtrat Rate mL/min > 60 mL/min Glucose Level 104 mg/dl Calcium Level 10.0 mg/dl Total Bilirubin 0.4 mg/dl Direct Bilirubin 0.00 mg/dl Indirect Bilirubin 0.4 mg/dl Aspartate Amino Transf (AST/SGOT) 17 IU/L Alanine Aminotransferase (ALT/SGPT) < 6 IU/L Alkaline Phosphatase 115 IU/L Total Protein 8.4 g/dl Albumin 4.5 g/dl Globulin 3.90 g/dl Albumin/Globulin Ratio 1.15 Free Thyroxine 1.61 ng/dl POC Venous Lactate 1.8 mmol/L Current Medications Medications Dose Sig/[place] Start Time Status Last (Trade) Ordered Route PRN Stop Time Admin Dose Reason Admin Sodium 1,980 ml BOLUS OVER 2 05/07/18 DC 05/07/18 Chloride HOURS STAT 06:57 05/07/18 07:44 (NS) IV* 06:59 Procedures/MDM IV line was established patient was placed on alarm security or surveillance monitor rhythm strip revealed a sinus tachycardia at 100 bpm with upright P and T waves. Patient was febrile. Blood and wound cultures have been ordered results are pending I will follow-up. I do not suspect sepsis. I administered 1 L normal saline IV and Zosyn 3.375 g IV x1. CBC reveals a leukocytosis at 13, electrolytes and liver function tests are unremarkable. Patient will be admitted to [facility] for continued medical management, IV antibio tics and debridement. Departure Diagnosis: Primary Impression: Infected ulcer of skin Non-pressure ulcer stage: unspecified non-pressure ulcer stage Qualified Codes: L98.499 - Non-pressure chronic ulcer of skin of other sites with unspecified severity; L08.9 - Local infection of the skin and subcutaneous tissue, unspecified Additional Impression: Paraplegia Condition: CECILIO Willoughby MD May 07, 2018 10:44
[2018-05-07] MEDS: GABAPENTIN 300 MG CAP PO SCH ×3 (13:00→21:21)
[2018-05-07 13:57] VITALS: BP 113/58; PULSE 72; RESP 18
[2018-05-07] MEDS: morphine 2 MG INJ IV PRN ×2 (13:58→23:41)
[2018-05-07] MEDS: PIPER-TAZO 3.375 GM IV (PMX) 100 ML IVPB SCH ×3 (13:58→23:51)
[2018-05-07] MEDS: ZINC SULFATE 220 MG CAP PO SCH (13:58)
[2018-05-07] MEDS: SOD CHLORIDE 0.9% 1,000 ML IV SCH ×2 (13:58→20:43)
[2018-05-07] MEDS: FAMOTIDINE 20 MG TAB PO SCH (13:59)
[2018-05-07] MEDS: ASCORBIC ACID 500 MG TAB PO SCH (13:59)
[2018-05-07] MEDS: MULTIVITAMINS THERAPEUTIC TAB PO SCH (13:59)
[2018-05-07] MEDS: HEPARIN 5,000 UNIT/1 ML VIAL SC SCH ×2 (14:00→21:20)
[2018-05-07] MEDS ORDERED: CYCLOBENZAPRINE 10 MG TAB PO ONE (14:00)
[2018-05-07] MEDS ORDERED: PENDING SANTYL ORDER FOR WOUND CARE XX PRN (15:30)
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
[2018-05-07] MEDS: COLLAGENASE 5 GM (UD JAR) TOP SCH (17:53)
[2018-05-07] MEDS: SODIUM HYPOCHLORITE (1/40) 1 LITER BTL IRR SCH ×2 (17:53→21:26)
[2018-05-07] MEDS: ZINC OXIDE 20% 30 GM OINT TOP SCH ×2 (17:54→21:48)
[2018-05-07] MEDS: VANCOMYCIN 750 MG (PMX) 250 ML IVPB SCH (17:59)
[2018-05-07 20:09] VITALS: BP 104/59; PULSE 97; RESP 18
[2018-05-08 02:00] VITALS: BP 100/62; PULSE 85; RESP 16
[2018-05-08] MEDS: VANCOMYCIN 750 MG (PMX) 250 ML IVPB SCH ×3 (03:06→18:21)
[2018-05-08] MEDS: PIPER-TAZO 3.375 GM IV (PMX) 100 ML IVPB SCH ×3 (06:04→17:33)
[2018-05-08 07:55] VITALS: BP 106/59; PULSE 74; RESP 16
[2018-05-08] MEDS: morphine 2 MG INJ IV PRN ×4 (08:02→20:53)
[2018-05-08] MEDS: MULTIVITAMINS THERAPEUTIC TAB PO SCH (08:13)
[2018-05-08] MEDS: GABAPENTIN 300 MG CAP PO SCH ×3 (08:13→20:44)
[2018-05-08] MEDS: ZINC SULFATE 220 MG CAP PO SCH (08:13)
[2018-05-08] MEDS: FAMOTIDINE 20 MG TAB PO SCH (08:13)
[2018-05-08] MEDS: ASCORBIC ACID 500 MG TAB PO SCH (08:13)
[2018-05-08] MEDS: COLLAGENASE 5 GM (UD JAR) TOP SCH (08:13)
[2018-05-08] MEDS: HEPARIN 5,000 UNIT/1 ML VIAL SC SCH ×2 (08:15→20:45)
[2018-05-08] MEDS: SODIUM HYPOCHLORITE (1/40) 1 LITER BTL IRR SCH ×3 (08:18→20:58)
[2018-05-08] MEDS: ZINC OXIDE 20% 30 GM OINT TOP SCH ×4 (08:19→20:58)
[2018-05-08] MEDS: HYDROCODONE/APAP (5/325) TAB PO PRN ×2 (09:58→17:37)
[2018-05-08] MEDS: SOD CHLORIDE 0.9% 1,000 ML IV SCH ×2 (10:03→23:21)
--- NOTE | 2018-05-08 14:08 | PN ---
Date/Time of Note Date/Time of Note DATE: 05/08/18 TIME: 14:08 Assessment/Plan Lines/Catheters IV Catheter Type (from Nrs): Saline Lock Lua in Place (from Nrs): No Subjective 24 Hr Interval Summary Exam/Review of Systems Vital Signs Vitals Vital Signs Date Temp Pulse Resp B/P (MAP) Pulse Ox O2 O2 Flow FiO2 Time Delivery Rate 05/25/18 98.0 61 17 109/57 100 Room Air 08:00 (74) Intake and Output 05/24/18 05/24/18 05/25/18 1515:00 23:00 07:00 IntakeIntake Total 1090 ml 950 ml 1390 ml OutputOutput Total 750 ml 700 ml BalanceBalance 1090 ml 200 ml 690 ml Exam Free Text/Dictation Results Result Diagram: 05/23/18 1148 MYRNA FRIEDMAN NP May 08, 2018 14:08
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
[2018-05-08 20:00] VITALS: BP 141/76; PULSE 53; RESP 17
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
[2018-05-09] MEDS: HYDROCODONE/APAP (5/325) TAB PO PRN (00:11)
[2018-05-09] MEDS: PIPER-TAZO 3.375 GM IV (PMX) 100 ML IVPB SCH ×4 (00:11→18:24)
[2018-05-09] MEDS: morphine 2 MG INJ IV PRN ×6 (01:31→23:26)
[2018-05-09] MEDS: VANCOMYCIN 1 GM 250 ML IVPB SCH ×3 (01:34→19:03)
[2018-05-09 02:00] VITALS: BP 108/53; PULSE 70; RESP 17
[2018-05-09] MEDS ORDERED: HYDROCODONE/APAP (5/325) TAB PO PRN (05:00)
[2018-05-09 08:01] VITALS: BP 117/55; PULSE 82; RESP 17
[2018-05-09] MEDS: FAMOTIDINE 20 MG TAB PO SCH (09:19)
[2018-05-09] MEDS: ZINC SULFATE 220 MG CAP PO SCH (09:19)
[2018-05-09] MEDS: COLLAGENASE 5 GM (UD JAR) TOP SCH (09:19)
[2018-05-09] MEDS: ASCORBIC ACID 500 MG TAB PO SCH (09:19)
[2018-05-09] MEDS: GABAPENTIN 300 MG CAP PO SCH ×3 (09:19→23:23)
[2018-05-09] MEDS: MULTIVITAMINS THERAPEUTIC TAB PO SCH (09:19)
[2018-05-09] MEDS: ZINC OXIDE 20% 30 GM OINT TOP SCH ×2 (09:20→20:24)
[2018-05-09] MEDS: HEPARIN 5,000 UNIT/1 ML VIAL SC SCH ×2 (09:21→23:24)
[2018-05-09] MEDS: SODIUM HYPOCHLORITE (1/40) 1 LITER BTL IRR SCH ×5 (09:23→21:10)
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
[2018-05-09] MEDS: SOD CHLORIDE 0.9% 1,000 ML IV SCH (11:52)
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
[2018-05-09 14:20] VITALS: BP 106/55; PULSE 80; RESP 18
--- NOTE | 2018-05-09 18:14 | PSY ---
Date/Time of Note Date/Time of Note DATE: 05/09/18 TIME: 21:06 Psychiatric Subjective Eval Consent Pt consented to telemedicine: Yes Subjective Evaluation Patient location: emergency Chief Complaint: MULTIPLE PRESSURE WOUNDS History of present illness HPI: 32 yo male with ho schizophrenia per pt, in hospital for sacral decub, asked to see a psychiatrist for eval. attending confirms no acute issues, no si/hi, just aske to see psych. Has been cooperative. spoke with pt. He was very disorganized, vague, tangential, loose (associations). Very derailing. At end of interview denies having schizophrenia. Past Psych Hx: one past psych admit, was very vague about suicide attempts, hard to understand PMHxL: sacral decubitis ulcer nkda Meds: antibiotics, opioid prn, paraplegic MSE: casually groomed, does not move legs, cooperative, bizarre affect, restricted affect, very disorganized, + delusions kami avh denies si/hi Soc Hx: lives wiht family IMP; 32 yo male, psychotic begin zyprexa 5mg po bid for moderate agitation zyprexa 5mg po prn for severe agitation chlorpromazine 25m gim prn recommend parallel hx from father to give information on pt's level of fxning and whether he is able to function at this level of disorganization; if he is able to function and has a stable level of sxs, could be discharged and fu with an outpatient psychiatrist (should be referred to one); if father indicates bronwyn tsxs are new and or pt not fxning, pt would need to likely have inpatient psych treatment Medical history Problems Medical Problems: (1) Infected decubitus ulcer Status: Acute (2) Infected ulcer of skin Status: Acute (3) Paraplegia Status: Acute (4) Pressure ulcer Status: Acute (5) Skin change Status: Acute Allergies: Coded Allergies: No Known Allergies (Verified Allergy, Unknown, 04/26/18) Psychiatric Objective Eval Mental Status Examination: Laboratory Results Laboratory Tests Test 05/08/18 04:50 05/08/18 17:05 05/09/18 04:48 White Blood Count 9.2 10^3/ul 6.4 10^3/ul Red Blood Count 4.00 10^6/ul 3.73 10^6/ul Hemoglobin 10.9 g/dl 10.4 g/dl Hematocrit 35.6 % 33.4 % Mean Corpuscular Volume 89.0 fl 89.5 fl Mean Corpuscular Hemoglobin 27.3 pg 27.9 pg Mean Corpuscular 30.6 g/dl 31.1 g/dl Hemoglobin Concent Red Cell Distribution Width 13.9 % 13.9 % Platelet Count 318 10^3/UL 318 10^3/UL Mean Platelet Volume 9.6 fl 9.9 fl Immature Granulocytes % 0.300 % 0.500 % Neutrophils % 75.6 % 61.3 % Lymphocytes % 13.2 % 22.0 % Monocytes % 7.4 % 8.4 % Eosinophils % 3.3 % 7.3 % Basophils % 0.2 % 0.5 % Nucleated Red Blood Cells % 0.0 /100WBC 0.0 /100WBC Immature Granulocytes # 0.030 10^3/ul 0.030 10^3/ul Neutrophils # 7.0 10^3/ul 4.0 10^3/ul Lymphocytes # 1.2 10^3/ul 1.4 10^3/ul Monocytes # 0.7 10^3/ul 0.5 10^3/ul Eosinophils # 0.3 10^3/ul 0.5 10^3/ul Basophils # 0.0 10^3/ul 0.0 10^3/ul Nucleated Red Blood Cells # 0.0 10^3/ul 0.0 10^3/ul Sodium Level 141 mmol/L 141 mmol/L Potassium Level 3.9 mmol/L 3.7 mmol/L Chloride Level 106 mmol/L 108 mmol/L Carbon Dioxide Level 25 mmol/L 27 mmol/L Anion Gap 10 6 Blood Urea Nitrogen 15 mg/dl 12 mg/dl Creatinine 0.75 mg/dl 0.67 mg/dl Est Glomerular Filtrat Rate mL/min > 60 mL/min > 60 mL/min Glucose Level 92 mg/dl 136 mg/dl Hemoglobin A1c 5.1 % Calcium Level 9.0 mg/dl 8.8 mg/dl Phosphorus Level 3.6 mg/dl Magnesium Level 1.7 mg/dl Triglycerides Level 74 mg/dl Cholesterol Level 106 mg/dl LDL Cholesterol, Calculated 66 mg/dl HDL Cholesterol 25 mg/dl Cholesterol/HDL Ratio 4.2 RATIO Thyroid Stimulating Hormone (TSH) 1.350 MIU/L Vancomycin Level Trough 10.1 ug/ml Assessment and Plan Recommendation/Plan Multiple antipsychotics: No Discharge Disposition: Community (Other) Legal Status: Voluntary ELBA SERRANO May 09, 2018 18:14
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
[2018-05-09] MEDS: HYDROCODONE/APAP (10/325) TAB PO PRN (20:22)
[2018-05-09 21:54] VITALS: BP 110/53; PULSE 85; RESP 20
[2018-05-09] MEDS: OLANZAPINE 5 MG TAB PO SCH ×2 (22:00→23:23)
[2018-05-10] MEDS: PIPER-TAZO 3.375 GM IV (PMX) 100 ML IVPB SCH ×3 (00:50→12:30)
[2018-05-10] MEDS: HYDROCODONE/APAP (10/325) TAB PO PRN (01:18)
[2018-05-10] MEDS: VANCOMYCIN 1 GM 250 ML IVPB SCH ×3 (02:16→17:07)
[2018-05-10] MEDS: SOD CHLORIDE 0.9% 1,000 ML IV SCH ×2 (04:18→17:20)
[2018-05-10] MEDS: morphine 4 MG/ML VIAL IV PRN ×4 (05:24→21:41)
[2018-05-10 08:00] VITALS: BP 108/53; PULSE 69; RESP 19
[2018-05-10] MEDS: ZINC SULFATE 220 MG CAP PO SCH (08:28)
[2018-05-10] MEDS: GABAPENTIN 300 MG CAP PO SCH ×3 (08:28→20:44)
[2018-05-10] MEDS: MULTIVITAMINS THERAPEUTIC TAB PO SCH (08:29)
[2018-05-10] MEDS: FAMOTIDINE 20 MG TAB PO SCH (08:29)
[2018-05-10] MEDS: ASCORBIC ACID 500 MG TAB PO SCH (08:30)
[2018-05-10] MEDS: COLLAGENASE 5 GM (UD JAR) TOP SCH (08:30)
[2018-05-10] MEDS: ZINC OXIDE 20% 30 GM OINT TOP SCH ×3 (08:31→20:48)
[2018-05-10] MEDS: HEPARIN 5,000 UNIT/1 ML VIAL SC SCH ×2 (08:33→20:45)
[2018-05-10] MEDS: SODIUM HYPOCHLORITE (1/40) 1 LITER BTL IRR SCH ×2 (08:35→20:48)
[2018-05-10] MEDS: OLANZAPINE 5 MG TAB PO SCH (08:40)
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
[2018-05-10 14:00] VITALS: BP 115/52; PULSE 70; RESP 18
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
[2018-05-10 20:00] VITALS: BP 94/47; PULSE 84; RESP 18
[2018-05-11] MEDS: VANCOMYCIN 1 GM 250 ML IVPB SCH ×3 (01:40→17:56)
[2018-05-11 02:00] VITALS: BP 168/32; PULSE 51; RESP 19
[2018-05-11] MEDS: SOD CHLORIDE 0.9% 1,000 ML IV SCH ×2 (06:35→09:32)
[2018-05-11 08:45] VITALS: BP 135/66; PULSE 68; RESP 18
[2018-05-11] MEDS: ZINC SULFATE 220 MG CAP PO SCH (09:28)
[2018-05-11] MEDS: ASCORBIC ACID 500 MG TAB PO SCH (09:28)
[2018-05-11] MEDS: COLLAGENASE 5 GM (UD JAR) TOP SCH (09:28)
[2018-05-11] MEDS: MULTIVITAMINS THERAPEUTIC TAB PO SCH (09:28)
[2018-05-11] MEDS: GABAPENTIN 300 MG CAP PO SCH ×3 (09:28→21:16)
[2018-05-11] MEDS: ZINC OXIDE 20% 30 GM OINT TOP SCH ×3 (09:30→21:21)
[2018-05-11] MEDS: HEPARIN 5,000 UNIT/1 ML VIAL SC SCH ×2 (09:31→21:21)
[2018-05-11] MEDS: SODIUM HYPOCHLORITE (1/40) 1 LITER BTL IRR SCH ×4 (09:32→21:16)
[2018-05-11] MEDS: FAMOTIDINE 20 MG TAB PO SCH (09:34)
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
[2018-05-11] MEDS: morphine 4 MG/ML VIAL IV PRN ×2 (11:28→17:54)
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
[2018-05-11 14:43] VITALS: BP 91/53; PULSE 95; RESP 17
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
--- NOTE | 2018-05-11 18:54 | CONS ---
Date/Time of Note Date/Time of Note DATE: 05/11/18 TIME: 18:47 Consult Date/Type/Reason Admit Date May 07, 2018 at 08:59 Type of Consult Psych Ordering Provider: YA FOX Patient is a 32 year old male admitted for sacral decub. On a face to face evaluation, patient goes off on tangent, loose, denies having schizophrenia., denies suicidal ideation and homocidal ideation. Patient is very alert and oriented, able to make his own decision . Objective Patient Appearance: Appropriate dress Voice Loudness: Normal Mood and Affect Description: Calm Mood or Affect: Cooperative Speech Pattern: Clear Thought Process: Tangential Hallucination Type: None Delusion Description: Not Present Assessment/Plan Recommendations Declined medication. MANJULA LEONARD NP May 11, 2018 18:54
[2018-05-11] MEDS: HYDROCODONE/APAP (10/325) TAB PO PRN (19:01)
[2018-05-11 20:07] VITALS: BP 103/53; PULSE 95; RESP 18
[2018-05-12 02:25] VITALS: BP 99/51; PULSE 92; RESP 18
[2018-05-12] MEDS: VANCOMYCIN 1 GM 250 ML IVPB SCH ×3 (03:48→17:25)
[2018-05-12] MEDS: morphine 4 MG/ML VIAL IV PRN ×5 (04:55→21:53)
[2018-05-12] MEDS: HYDROCODONE/APAP (10/325) TAB PO PRN (05:44)
[2018-05-12 08:33] VITALS: BP 93/49; PULSE 74; RESP 18
[2018-05-12] MEDS: HEPARIN 5,000 UNIT/1 ML VIAL SC SCH ×2 (09:06→21:56)
[2018-05-12] MEDS: GABAPENTIN 300 MG CAP PO SCH ×3 (09:07→21:53)
[2018-05-12] MEDS: ASCORBIC ACID 500 MG TAB PO SCH (09:07)
[2018-05-12] MEDS: MULTIVITAMINS THERAPEUTIC TAB PO SCH (09:07)
[2018-05-12] MEDS: ZINC SULFATE 220 MG CAP PO SCH (09:07)
[2018-05-12] MEDS: FAMOTIDINE 20 MG TAB PO SCH (09:07)
[2018-05-12] MEDS: COLLAGENASE 5 GM (UD JAR) TOP SCH (09:08)
[2018-05-12] MEDS: ZINC OXIDE 20% 30 GM OINT TOP SCH ×3 (09:09→21:54)
[2018-05-12] MEDS: SODIUM HYPOCHLORITE (1/40) 1 LITER BTL IRR SCH ×2 (09:09→21:53)
[2018-05-12] MEDS: SOD CHLORIDE 0.9% 1,000 ML IV SCH ×2 (09:20→15:10)
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
[2018-05-12 20:00] VITALS: BP 121/56; PULSE 79; RESP 19
[2018-05-13] MEDS: VANCOMYCIN 1 GM 250 ML IVPB SCH ×3 (02:27→17:44)
[2018-05-13] MEDS: morphine 4 MG/ML VIAL IV PRN ×5 (02:58→23:10)
[2018-05-13] MEDS: SOD CHLORIDE 0.9% 1,000 ML IV SCH ×2 (05:19→23:18)
[2018-05-13 08:29] VITALS: BP 122/55; PULSE 79; RESP 18
[2018-05-13] MEDS: SODIUM HYPOCHLORITE (1/40) 1 LITER BTL IRR SCH ×3 (09:00→23:18)
[2018-05-13] MEDS: ZINC OXIDE 20% 30 GM OINT TOP SCH ×3 (09:00→23:19)
[2018-05-13] MEDS: ZINC SULFATE 220 MG CAP PO SCH (10:00)
[2018-05-13] MEDS: HEPARIN 5,000 UNIT/1 ML VIAL SC SCH ×2 (10:00→20:47)
[2018-05-13] MEDS: GABAPENTIN 300 MG CAP PO SCH ×3 (10:01→20:45)
[2018-05-13] MEDS: FAMOTIDINE 20 MG TAB PO SCH (10:01)
[2018-05-13] MEDS: MULTIVITAMINS THERAPEUTIC TAB PO SCH (10:01)
[2018-05-13] MEDS: ASCORBIC ACID 500 MG TAB PO SCH (10:01)
[2018-05-13] MEDS: COLLAGENASE 5 GM (UD JAR) TOP SCH (10:02)
[2018-05-13 14:01] VITALS: BP 120/58; PULSE 80; RESP 18
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
[2018-05-13 20:00] VITALS: BP 113/57; PULSE 73; RESP 18
[2018-05-13] MEDS: HYDROCODONE/APAP (10/325) TAB PO PRN (20:45)
[2018-05-14] MEDS: VANCOMYCIN 1 GM 250 ML IVPB SCH ×3 (01:19→17:16)
[2018-05-14] MEDS: HYDROCODONE/APAP (10/325) TAB PO PRN ×3 (01:19→20:04)
[2018-05-14 02:00] VITALS: BP 115/55; PULSE 84; RESP 18
[2018-05-14] MEDS: morphine 4 MG/ML VIAL IV PRN ×5 (03:40→22:10)
[2018-05-14 08:28] VITALS: BP 115/56; PULSE 84; RESP 17
[2018-05-14] MEDS: MULTIVITAMINS THERAPEUTIC TAB PO SCH (09:12)
[2018-05-14] MEDS: ZINC SULFATE 220 MG CAP PO SCH (09:12)
[2018-05-14] MEDS: GABAPENTIN 300 MG CAP PO SCH ×3 (09:12→20:05)
[2018-05-14] MEDS: ASCORBIC ACID 500 MG TAB PO SCH (09:12)
[2018-05-14] MEDS: FAMOTIDINE 20 MG TAB PO SCH (09:12)
[2018-05-14] MEDS: HEPARIN 5,000 UNIT/1 ML VIAL SC SCH ×2 (09:14→20:08)
[2018-05-14] MEDS: COLLAGENASE 5 GM (UD JAR) TOP SCH (09:14)
[2018-05-14] MEDS: SODIUM HYPOCHLORITE (1/40) 1 LITER BTL IRR SCH ×3 (09:20→23:14)
[2018-05-14] MEDS: ZINC OXIDE 20% 30 GM OINT TOP SCH ×3 (09:21→23:14)
[2018-05-14] MEDS: SOD CHLORIDE 0.9% 1,000 ML IV SCH ×2 (14:40→17:13)
[2018-05-14 14:58] VITALS: BP 99/55; PULSE 76; RESP 17
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
[2018-05-14 17:21] VITALS: BP 121/60; PULSE 86
[2018-05-14 20:00] VITALS: BP 137/66; PULSE 68; RESP 18
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
[2018-05-15 02:00] VITALS: BP 107/59; PULSE 73; RESP 18
[2018-05-15] MEDS: VANCOMYCIN 1 GM 250 ML IVPB SCH ×3 (03:05→22:32)
[2018-05-15] MEDS: morphine 4 MG/ML VIAL IV PRN ×4 (03:28→22:32)
[2018-05-15] MEDS: SOD CHLORIDE 0.9% 1,000 ML IV SCH ×2 (04:00→17:20)
[2018-05-15] MEDS: ASCORBIC ACID 500 MG TAB PO SCH (10:06)
[2018-05-15] MEDS: GABAPENTIN 300 MG CAP PO SCH ×3 (10:06→21:00)
[2018-05-15] MEDS: ZINC SULFATE 220 MG CAP PO SCH (10:06)
[2018-05-15] MEDS: MULTIVITAMINS THERAPEUTIC TAB PO SCH (10:06)
[2018-05-15] MEDS: FAMOTIDINE 20 MG TAB PO SCH (10:07)
[2018-05-15] MEDS: ZINC OXIDE 20% 30 GM OINT TOP SCH ×3 (10:08→21:00)
[2018-05-15] MEDS: SODIUM HYPOCHLORITE (1/40) 1 LITER BTL IRR SCH ×3 (10:09→21:00)
[2018-05-15] MEDS: COLLAGENASE 5 GM (UD JAR) TOP SCH (10:16)
[2018-05-15 10:17] VITALS: BP 103/54; PULSE 77; RESP 16
[2018-05-15] MEDS: HEPARIN 5,000 UNIT/1 ML VIAL SC SCH ×2 (10:17→21:00)
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
[2018-05-15 14:01] VITALS: BP 103/56; PULSE 71; RESP 16
[2018-05-15] MEDS: HYDROCODONE/APAP (10/325) TAB PO PRN (16:17)
[2018-05-15 21:32] VITALS: BP 106/58; PULSE 60; RESP 18
[2018-05-16] MEDS: HYDROCODONE/APAP (10/325) TAB PO PRN (01:15)
[2018-05-16 02:26] VITALS: BP 106/58; PULSE 73; RESP 18
[2018-05-16] MEDS: morphine 4 MG/ML VIAL IV PRN ×3 (02:37→18:35)
[2018-05-16] MEDS: SOD CHLORIDE 0.9% 1,000 ML IV SCH ×2 (03:22→21:17)
[2018-05-16] MEDS: VANCOMYCIN 1 GM 250 ML IVPB SCH (05:21)
[2018-05-16] MEDS: MULTIVITAMINS THERAPEUTIC TAB PO SCH (11:00)
[2018-05-16] MEDS: ZINC SULFATE 220 MG CAP PO SCH (11:00)
[2018-05-16] MEDS: GABAPENTIN 300 MG CAP PO SCH ×3 (11:00→21:18)
[2018-05-16] MEDS: ASCORBIC ACID 500 MG TAB PO SCH (11:00)
[2018-05-16] MEDS: FAMOTIDINE 20 MG TAB PO SCH (11:00)
[2018-05-16] MEDS: HEPARIN 5,000 UNIT/1 ML VIAL SC SCH ×2 (11:02→21:18)
[2018-05-16] MEDS: SODIUM HYPOCHLORITE (1/40) 1 LITER BTL IRR SCH ×3 (11:48→21:00)
[2018-05-16] MEDS: ZINC OXIDE 20% 30 GM OINT TOP SCH ×3 (11:49→21:00)
[2018-05-16] MEDS: COLLAGENASE 5 GM (UD JAR) TOP SCH (11:49)
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
[2018-05-16 14:00] VITALS: BP 119/72; PULSE 94; RESP 16
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
[2018-05-16] MEDS: VANCOMYCIN 750 MG (PMX) 250 ML IVPB SCH (18:34)
[2018-05-16 21:11] VITALS: BP 107/58; PULSE 78; RESP 16
[2018-05-17] MEDS: morphine 4 MG/ML VIAL IV PRN ×3 (01:22→13:07)
[2018-05-17] MEDS: VANCOMYCIN 750 MG (PMX) 250 ML IVPB SCH ×3 (01:22→18:20)
[2018-05-17] MEDS ORDERED: HYDROCODONE/APAP (5/325) TAB PO ONE (02:00)
[2018-05-17 08:00] VITALS: BP 110/55; PULSE 62; RESP 20
[2018-05-17] MEDS: SOD CHLORIDE 0.9% 1,000 ML IV SCH (09:20)
[2018-05-17] MEDS: SODIUM HYPOCHLORITE (1/40) 1 LITER BTL IRR SCH ×2 (09:56→21:53)
[2018-05-17] MEDS: COLLAGENASE 5 GM (UD JAR) TOP SCH (09:57)
[2018-05-17] MEDS: FAMOTIDINE 20 MG TAB PO SCH (09:57)
[2018-05-17] MEDS: GABAPENTIN 300 MG CAP PO SCH ×3 (09:57→21:49)
[2018-05-17] MEDS: MULTIVITAMINS THERAPEUTIC TAB PO SCH (09:57)
[2018-05-17] MEDS: ASCORBIC ACID 500 MG TAB PO SCH (09:57)
[2018-05-17] MEDS: ZINC SULFATE 220 MG CAP PO SCH (09:57)
[2018-05-17] MEDS: ZINC OXIDE 20% 30 GM OINT TOP SCH ×3 (09:57→21:53)
[2018-05-17] MEDS: HEPARIN 5,000 UNIT/1 ML VIAL SC SCH ×2 (09:59→21:52)
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
[2018-05-17 14:00] VITALS: BP 124/76; PULSE 86; RESP 20
[2018-05-17] MEDS ORDERED: morphine 4 MG/ML VIAL IV PRN ×2 (15:00→21:00)
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
[2018-05-17] MEDS: SOD CHLORIDE 0.45% 1,000 ML IV SCH (18:20)
[2018-05-17 20:00] VITALS: BP 120/63; PULSE 84; RESP 18
[2018-05-18] MEDS: HYDROCODONE/APAP (10/325) TAB PO PRN ×2 (00:25→16:22)
[2018-05-18] MEDS: VANCOMYCIN 750 MG (PMX) 250 ML IVPB SCH ×3 (00:32→17:55)
[2018-05-18] MEDS ORDERED: morphine 4 MG/ML VIAL IV STA (01:00)
[2018-05-18 02:00] VITALS: BP 116/53; PULSE 67; RESP 19
[2018-05-18] MEDS: SOD CHLORIDE 0.45% 1,000 ML IV SCH ×2 (04:20→14:55)
[2018-05-18 08:00] VITALS: BP 134/62; PULSE 62; RESP 20
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
[2018-05-18] MEDS: ZINC OXIDE 20% 30 GM OINT TOP SCH ×3 (09:00→20:58)
[2018-05-18] MEDS: COLLAGENASE 5 GM (UD JAR) TOP SCH (09:00)
[2018-05-18] MEDS: GABAPENTIN 300 MG CAP PO SCH ×3 (09:58→20:39)
[2018-05-18] MEDS: FAMOTIDINE 20 MG TAB PO SCH (09:58)
[2018-05-18] MEDS: MULTIVITAMINS THERAPEUTIC TAB PO SCH (09:58)
[2018-05-18] MEDS: ZINC SULFATE 220 MG CAP PO SCH (09:58)
[2018-05-18] MEDS: ASCORBIC ACID 500 MG TAB PO SCH (09:58)
[2018-05-18] MEDS: SODIUM HYPOCHLORITE (1/40) 1 LITER BTL IRR SCH ×2 (09:59→20:40)
[2018-05-18] MEDS: HEPARIN 5,000 UNIT/1 ML VIAL SC SCH ×2 (10:01→20:39)
[2018-05-18] MEDS: morphine 2 MG INJ IV PRN ×3 (10:07→18:55)
[2018-05-18 14:00] VITALS: BP 128/62; PULSE 72; RESP 18
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
[2018-05-18] MEDS ORDERED: LIDOCAINE 1% (MPF) 5 ML VIAL SC ONE (16:00)
[2018-05-18 21:29] VITALS: BP 102/55; PULSE 64; RESP 18
[2018-05-19] MEDS: VANCOMYCIN 750 MG (PMX) 250 ML IVPB SCH ×3 (01:42→18:14)
[2018-05-19] MEDS: morphine 2 MG INJ IV PRN ×4 (01:42→19:46)
[2018-05-19 02:09] VITALS: BP 127/67; PULSE 80; RESP 18
[2018-05-19 08:21] VITALS: BP 118/58; PULSE 80; RESP 18
[2018-05-19] MEDS: ZINC OXIDE 20% 30 GM OINT TOP SCH ×3 (09:00→21:00)
[2018-05-19] MEDS: COLLAGENASE 5 GM (UD JAR) TOP SCH (09:00)
[2018-05-19] MEDS: SODIUM HYPOCHLORITE (1/40) 1 LITER BTL IRR SCH ×2 (10:50→21:00)
[2018-05-19] MEDS: SOD CHLORIDE 0.45% 1,000 ML IV SCH ×2 (10:50→20:20)
[2018-05-19] MEDS: ZINC SULFATE 220 MG CAP PO SCH (10:51)
[2018-05-19] MEDS: MULTIVITAMINS THERAPEUTIC TAB PO SCH (10:51)
[2018-05-19] MEDS: ASCORBIC ACID 500 MG TAB PO SCH (10:51)
[2018-05-19] MEDS: HEPARIN 5,000 UNIT/1 ML VIAL SC SCH ×2 (10:51→22:46)
[2018-05-19] MEDS: FAMOTIDINE 20 MG TAB PO SCH (10:51)
[2018-05-19] MEDS: GABAPENTIN 300 MG CAP PO SCH ×3 (10:51→22:12)
[2018-05-19 14:01] VITALS: BP 114/60; PULSE 79; RESP 18
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
[2018-05-19] MEDS ORDERED: HYDROCODONE/APAP (5/325) TAB PO PRN (17:00)
[2018-05-19 21:11] VITALS: BP 126/60; PULSE 80; RESP 20
[2018-05-20] MEDS: VANCOMYCIN 750 MG (PMX) 250 ML IVPB SCH ×3 (01:06→16:39)
[2018-05-20] MEDS: morphine 2 MG INJ IV PRN ×3 (02:34→18:56)
[2018-05-20] MEDS: SOD CHLORIDE 0.45% 1,000 ML IV SCH (06:41)
[2018-05-20 08:26] VITALS: BP 104/58; PULSE 69; RESP 17
[2018-05-20] MEDS: ZINC OXIDE 20% 30 GM OINT TOP SCH ×2 (09:00→10:15)
[2018-05-20] MEDS: FAMOTIDINE 20 MG TAB PO SCH (10:06)
[2018-05-20] MEDS: ZINC SULFATE 220 MG CAP PO SCH (10:06)
[2018-05-20] MEDS: GABAPENTIN 300 MG CAP PO SCH ×3 (10:06→21:50)
[2018-05-20] MEDS: MULTIVITAMINS THERAPEUTIC TAB PO SCH (10:06)
[2018-05-20] MEDS: ASCORBIC ACID 500 MG TAB PO SCH (10:06)
[2018-05-20] MEDS: HEPARIN 5,000 UNIT/1 ML VIAL SC SCH ×2 (10:07→21:54)
[2018-05-20] MEDS: SODIUM HYPOCHLORITE (1/40) 1 LITER BTL IRR SCH ×2 (10:14→21:50)
[2018-05-20] MEDS: COLLAGENASE 5 GM (UD JAR) TOP SCH (10:14)
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
[2018-05-20 14:00] VITALS: BP 104/60; PULSE 69
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
[2018-05-20] MEDS: HYDROCODONE/APAP (5/325) TAB PO PRN ×2 (16:08→21:56)
[2018-05-20 20:34] VITALS: BP 112/57; PULSE 93
[2018-05-21] MEDS: SOD CHLORIDE 0.45% 1,000 ML IV SCH ×2 (00:51→21:00)
[2018-05-21] MEDS: VANCOMYCIN 750 MG (PMX) 250 ML IVPB SCH ×3 (00:52→16:33)
[2018-05-21] MEDS: morphine 2 MG INJ IV PRN ×4 (00:53→23:00)
[2018-05-21] MEDS: ZINC OXIDE 20% 30 GM OINT TOP SCH ×4 (01:23→20:51)
[2018-05-21 02:00] VITALS: BP 112/62; PULSE 78; RESP 18
[2018-05-21] MEDS: HYDROCODONE/APAP (5/325) TAB PO PRN (04:39)
[2018-05-21 08:00] VITALS: BP 91/54; PULSE 88; RESP 18
[2018-05-21] MEDS: GABAPENTIN 300 MG CAP PO SCH ×3 (08:52→20:49)
[2018-05-21] MEDS: FAMOTIDINE 20 MG TAB PO SCH (08:52)
[2018-05-21] MEDS: MULTIVITAMINS THERAPEUTIC TAB PO SCH (08:52)
[2018-05-21] MEDS: ASCORBIC ACID 500 MG TAB PO SCH (08:52)
[2018-05-21] MEDS: ZINC SULFATE 220 MG CAP PO SCH (08:52)
[2018-05-21] MEDS: HEPARIN 5,000 UNIT/1 ML VIAL SC SCH ×2 (08:53→20:49)
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
[2018-05-21 14:07] VITALS: BP 106/51; PULSE 91; RESP 19
[2018-05-21] MEDS: COLLAGENASE 5 GM (UD JAR) TOP SCH (15:28)
[2018-05-21] MEDS: SODIUM HYPOCHLORITE (1/40) 1 LITER BTL IRR SCH ×2 (15:29→20:50)
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
[2018-05-21 20:00] VITALS: BP 124/64; PULSE 68; RESP 18
[2018-05-22] MEDS: SOD CHLORIDE 0.45% 1,000 ML IV SCH ×2 (01:40→14:14)
[2018-05-22] MEDS: VANCOMYCIN 750 MG (PMX) 250 ML IVPB SCH ×3 (01:43→17:45)
[2018-05-22 02:00] VITALS: BP 112/54; PULSE 66; RESP 18
[2018-05-22] MEDS: HYDROCODONE/APAP (5/325) TAB PO PRN ×3 (02:54→22:31)
[2018-05-22] MEDS: HEPARIN 5,000 UNIT/1 ML VIAL SC SCH ×2 (08:40→21:10)
[2018-05-22] MEDS: MULTIVITAMINS THERAPEUTIC TAB PO SCH (08:40)
[2018-05-22] MEDS: FAMOTIDINE 20 MG TAB PO SCH (08:40)
[2018-05-22] MEDS: ASCORBIC ACID 500 MG TAB PO SCH (08:40)
[2018-05-22] MEDS: GABAPENTIN 300 MG CAP PO SCH ×3 (08:40→21:09)
[2018-05-22] MEDS: ZINC SULFATE 220 MG CAP PO SCH (08:40)
[2018-05-22] MEDS: morphine 2 MG INJ IV PRN ×2 (08:41→17:45)
[2018-05-22 08:50] VITALS: BP 97/52; RESP 17
[2018-05-22] MEDS: SODIUM HYPOCHLORITE (1/40) 1 LITER BTL IRR SCH ×2 (09:00→21:11)
[2018-05-22] MEDS: COLLAGENASE 5 GM (UD JAR) TOP SCH (09:00)
[2018-05-22 11:30] VITALS: BP 128/67; PULSE 74
[2018-05-22 13:05] VITALS: BP 138/99; PULSE 78
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
[2018-05-22 14:52] VITALS: BP 123/72; PULSE 67; RESP 16
[2018-05-22] MEDS: ZINC OXIDE 20% 30 GM OINT TOP SCH ×3 (17:01→21:11)
[2018-05-22 20:00] VITALS: BP 105/53; PULSE 75; RESP 18
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
[2018-05-23] MEDS: VANCOMYCIN 750 MG (PMX) 250 ML IVPB SCH ×3 (01:31→18:27)
[2018-05-23 02:00] VITALS: BP 115/57; PULSE 98; RESP 19
[2018-05-23] MEDS: morphine 2 MG INJ IV PRN ×2 (03:21→20:43)
[2018-05-23] MEDS: SOD CHLORIDE 0.45% 1,000 ML IV SCH ×2 (04:20→09:00)
[2018-05-23 08:47] VITALS: BP 118/59; PULSE 88; RESP 17
[2018-05-23] MEDS: HEPARIN 5,000 UNIT/1 ML VIAL SC SCH ×2 (08:47→20:46)
[2018-05-23] MEDS: ASCORBIC ACID 500 MG TAB PO SCH (08:50)
[2018-05-23] MEDS: COLLAGENASE 5 GM (UD JAR) TOP SCH (08:50)
[2018-05-23] MEDS: FAMOTIDINE 20 MG TAB PO SCH (08:50)
[2018-05-23] MEDS: MULTIVITAMINS THERAPEUTIC TAB PO SCH (08:50)
[2018-05-23] MEDS: ZINC SULFATE 220 MG CAP PO SCH (08:50)
[2018-05-23] MEDS: ZINC OXIDE 20% 30 GM OINT TOP SCH ×3 (08:50→20:54)
[2018-05-23] MEDS: GABAPENTIN 300 MG CAP PO SCH ×3 (08:50→20:43)
[2018-05-23] MEDS: SODIUM HYPOCHLORITE (1/40) 1 LITER BTL IRR SCH ×2 (08:51→20:53)
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
[2018-05-23 14:00] VITALS: BP 134/66; PULSE 73; RESP 18
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
[2018-05-23 19:45] VITALS: BP 133/63; PULSE 64; RESP 18
[2018-05-24] MEDS: VANCOMYCIN 750 MG (PMX) 250 ML IVPB SCH ×3 (00:28→16:58)
[2018-05-24] MEDS: SOD CHLORIDE 0.45% 1,000 ML IV SCH ×2 (00:29→20:36)
[2018-05-24 02:05] VITALS: BP 133/64; PULSE 75; RESP 18
[2018-05-24] MEDS: morphine 2 MG INJ IV PRN ×2 (07:33→17:55)
--- NOTE | 2018-05-24 07:53 | CONS ---
Consultation Date/Type/Reason Admit Date/Time May 07, 2018 at 08:59 Date/Time of Note DATE: 05/24/18 TIME: 07:47 Hx of Present Illness I have attempted to have a conversation with patient to discuss pain management. My understanding the patient has been refusing most recommendations from staff and has been demanding higher doses of opioids from staff intravenously. States that morphine 4 mg IV or higher doses of IV morphine controls his pain only. He is not interested in oral pain medications. I have discussed with him that based upon consultation with other physicians close I believe that the physicians have been lowering his opioids appropriately. At that point he accused me of ignoring his complaints and accusing him of being mentally impaired at no time did I used the word mental but medical. He became aggressive and argumentative. I told him I would not discuss anything further with him until he calmed down and especially if he becomes more compliant with staff. He adamantly refused to have a PICC line placed and refuses to have his bed changed to a bed which is more conducive to his wounds healing. Once again he adamantly refuses to discuss this. Whenever I would make a suggestion he wou ld turn that around and accuse me of ingestion that he has a mental disorder. He asked to speak to the nursing merchandise supervisor presumably because of my visit and refusing to prescribe higher doses of pain control medication. I will be available to speak to him once again however I believe this is more a matter of placement at this point my suggestion was to move him to oral medications but would like to speak with case management first fall and organize this approach before this becomes more of a psychosocial administrative aggressive interaction with patient and staff. Past Medical History Home Meds Active Scripts Multivitamins* (Theragran*) 1 Tab Tab, 1 TAB PO DAILY, #30 TAB Prov:SERRA,ARTHUR [employer] 04/29/18 Ascorbic Acid (Vitamin C) 500 Mg Tab, 500 MG PO DAILY, #30 TAB Prov:SERRA,ARTHUR [employer] 04/29/18 Gabapentin* (Gabapentin*) 300 Mg Capsule, 300 MG PO TID, #90 CAP Prov:SERRA,ARTHUR [employer] 04/29/18 Zinc Sulfate* (Zinc Sulfate*) 220 Mg Cap, 220 MG PO DAILY, #30 CAP Prov:SERRA,ARTHUR [employer] 2/22/19 Ibuprofen* (Ibuprofen*) 400 Mg Tablet, 400 MG PO Q6 PRN for PAIN, #30 TAB Prov:SERRAARTHUR MORTENSEN V. [employer]ER 04/29/18 Levofloxacin* (Levaquin*) 500 Mg Tablet, 500 MG PO DAILY@06 for 14 Days, #28 TAB Prov:SERRASAMEERA V[employer] 04/29/18 Reported Medications Hydrocodone/Acetaminophen ([place] 10-325 Tablet) 1 Each Tablet, 1 EACH PO PRN for PAIN LEVEL 6-10, TAB 04/26/18 Medications Current Medications IV Flush (NS 3 ml) 3 ml PER PROTOCOL IV ; Start 05/07/18 at 09:00 Ondansetron HCl (Zofran Inj) 4 mg Q6H PRN IV NAUSEA/VOMITING Last administered on 05/15/18at 05:02; Admin Dose 4 MG; Start 05/07/18 at 09:00 Acetaminophen (Tylenol Tab) 650 mg Q6H PRN PO .PAIN 1-3 OR TEMP; Start 05/07/18 at 09:00 Docusate Sodium (Colace) 100 mg Q12H PRN PO .CONSTIPATION; Start 05/07/18 at 09:00 Magnesium Hydroxide (Milk Of Mag) 30 ml DAILY PRN PO .CONSTIPATION; Start 05/07/18 at 09:00 Famotidine (Pepcid) 20 mg DAILY PO Last administered on 05/23/18at 08:50; Admin Dose 20 MG; Start 05/07/18 at 09:00 Heparin Sodium (Porcine) (Heparin (5000 Units/1ml)) 5,000 unit Q12 SC Last administered on 05/23/18at 20:46; Admin Dose 5,000 UNIT; Start 05/07/18 at 09:00 Lorazepam (Ativan) 0.5 mg Q6H PRN IV ANXIETY; Start 05/07/18 at 09:00 Albuterol/ Ipratropium (Duoneb) 3 ml Q4H RESP THERAPY PRN HHN SHORTNESS OF BREATH; Start 05/07/18 at 09:00 Vancomycin HCl (Vanco Iv Per Pharmacy) VANCOMYCIN PER PHARMACY NOTE XX ; Start 05/07/18 at 09:00 Hydralazine HCl (Apresoline) 10 mg Q6H PRN IV ELEVATED BLOOD PRESSURE; Start 05/07/18 at 09:00 Nitroglycerin (Nitroglycerin (Sl Tab) 0.4 Mg) 1 tab Q5M PRN SL ANGINA; Start 05/07/18 at 09:00 Ascorbic Acid (Vitamin C) 500 mg DAILY PO Last administered on 05/23/18 08:50; Admin Dose 500 MG; Start 05/07/18 at 09:00 Gabapentin (Neurontin) 300 mg TID PO Last administered on 05/23/18 20:43; A dmin Dose 300 MG; Start 05/07/18 at 09:00 Multivitamins Therapeutic (Theragran) 1 tab DAILY PO Last administered on 05/23/18 08:50; Admin Dose 1 TAB; Start 05/07/18 at 09:00 Zinc Sulfate (Zinc Sulfate) 220 mg DAILY PO Last administered on 05/23/18 08:50; Admin Dose 220 MG; Start 05/07/18 at 09:00 Miscellaneous Information (Pending Santyl Order For Wound Care) This patient costa... PRN PRN XX WOUND CARE; Start 05/07/18 at 15:30 Sodium Hypochlorite (Dakin'S (Dilute 1/40)) 1 applic BID IRR Last administered on 05/23/18 20:53; Admin Dose 1 APPLIC; Start 05/07/18 at 21:00 Collagenase (Santyl) 1 applic DAILY TOP Last administered on 05/23/18 08:50; Admin Dose 1 APPLIC; Start 05/07/18 at 18:00 Zinc Oxide (Zinc Oxide Oint) 1 applic DAILY TOP Last administered on 05/23/18 08:50; Admin Dose 1 APPLIC; Start 05/07/18 at 18:00 Zinc Oxide (Zinc Oxide Oint) 1 applic BID TOP Last administered on 05/23/18 20:54; Admin Dose 1 APPLIC; Start 05/07/18 at 21:00 Olanzapine (Zyprexa) 5 mg BID PO ; Start 05/09/18 at 21:00; Status Hold Vancomycin/Sodium Chloride 250 ml @ 125 mls/hr Q8H IVPB Last administered on 05/24/18 00:28; Admin Dose 125 MLS/HR; Start 05/16/18 at 17:00 Sodium Chloride 1,000 ml @ 75 mls/hr [id number] IV Last administered on 05/24/18 00:29; Admin Dose 75 MLS/HR; Start 05/17/18 at 15:00 Morphine Sulfate (morphine) 1 mg Q6H PRN IV SEVERE PAIN LEVEL 7-10 Last administered on 05/24/18at 07:33; Admin Dose 1 MG; Start 05/19/18 at 14:00 Acetaminophen/ Hydrocodone Bitart ([place] (5/325)) 1 tab Q6H PRN PO MODERATE PAIN LEVEL 4-6 Last administered on 05/22/18at 22:31; Admin Dose 1 TAB; Start 05/20/18 at 17:00 Miscellaneous Information (*Rx Drug Level Order Reminder*) VANCOMYCIN TROUGH AT 0800 ONCE ONCE XX ; Start 05/24/18 at 08:00; Stop 05/24/18 at 08:01 Allergies: Coded Allergies: No Known Allergies (Verified Allergy, Unknown, 04/26/18) Social History Alcohol Use: none Smoking Status: Never smoker Drug Use: none Exam/Review of Systems Exam Vitals Vital Signs Date Temp Pulse Resp B/P (MAP) Pulse Ox O2 O2 Flow FiO2 Time Delivery Rate 05/24/18 98.3 75 18 133/64 96 02:05 (87) 05/22/18 Room Air 08:50 Intake and Output 05/23/18 05/23/18 05/24/18 1515:00 23:00 07:00 IntakeIntake Total 855 ml 490 ml 1475 ml OutputOutput Total 100 ml 450 ml BalanceBalance 755 ml 40 ml 1475 ml Results Result Diagram: 05/20/18 0800 05/23/18 1148 Results 24hrs Laboratory Tests Test 05/23/18 11:48 Blood Urea Nitrogen 12 Creatinine 0.74 Medications Medication Current Medications IV Flush (NS 3 ml) 3 ml PER PROTOCOL IV ; Start 05/07/18 at 09:00 Ondansetron HCl (Zofran Inj) 4 mg Q6H PRN IV NAUSEA/VOMITING Last administered on 05/15/18at 05:02; Admin Dose 4 MG; Start 05/07/18 at 09:00 Acetaminophen (Tylenol Tab) 650 mg Q6H PRN PO .PAIN 1-3 OR TEMP; Start 05/07/18 at 09:00 Docusate Sodium (Colace) 100 mg Q12H PRN PO .CONSTIPATION; Start 05/07/18 at 09:00 Magnesium Hydroxide (Milk Of Mag) 30 ml DAILY PRN PO .CONSTIPATION; Start 05/07/18 at 09:00 Famotidine (Pepcid) 20 mg DAILY PO Last administered on 05/23/18at 08:50; Admin Dose 20 MG; Start 05/07/18 at 09:00 Heparin Sodium (Porcine) (Heparin (5000 Units/1ml)) 5,000 unit Q12 SC Last administered on 05/23/18 20:46; Admin Dose 5,000 UNIT; Start 05/07/18 at 09:00 Lorazepam (Ativan) 0.5 mg Q6H PRN IV ANXIETY; Start 05/07/18 at 09:00 Albuterol/ Ipratropium (Duoneb) 3 ml Q4H RESP THERAPY PRN HHN SHORTNESS OF BREATH; Start 05/07/18 at 09:00 Vancomycin HCl (Vanco Iv Per Pharmacy) VANCOMYCIN PER PHARMACY NOTE XX ; Start 05/07/18 at 09:00 Hydralazine HCl (Apresoline) 10 mg Q6H PRN IV ELEVATED BLOOD PRESSURE; Start 05/07/18 at 09:00 Nitroglycerin (Nitroglycerin (Sl Tab) 0.4 Mg) 1 tab Q5M PRN SL ANGINA; Start 05/07/18 at 09:00 Ascorbic Acid (Vitamin C) 500 mg DAILY PO Last administered on 05/23/18at 08:50; Admin Dose 500 MG; Start 05/07/18 at 09:00 Gabapentin (Neurontin) 300 mg TID PO Last administered on 05/23/18 20:43; Admin Dose 300 MG; Start 05/07/18 at 09:00 Multivitamins Therapeutic (Theragran) 1 tab DAILY PO Last administered on 05/23/18 08:50; Admin Dose 1 TAB; Start 05/07/18 at 09:00 Zinc Sulfate (Zinc Sulfate) 220 mg DAILY PO Last administered on 05/23/18 08:50; Admin Dose 220 MG; Start 05/07/18 at 09:00 [facility] This patient costa... PRN PRN XX WOUND CARE; Start 05/07/18 at 15:30 Sodium Hypochlorite (Dakin'S (Dilute )) 1 applic BID IRR Last administered on 05/23/18at 20:53; Admin Dose 1 APPLIC; Start 05/07/18 at 21:00 Collagenase (Santyl) 1 applic DAILY TOP Last administered on 05/23/18 08:50; Admin Dose 1 APPLIC; Start 05/07/18 at 18:00 Zinc Oxide (Zinc Oxide Oint) 1 applic DAILY TOP Last administered on 05/23/18 08:50; Admin Dose 1 APPLIC; Start 05/07/18 at 18:00 Zinc Oxide (Zinc Oxide Oint) 1 applic BID TOP Last administered on 05/23/18 20:54; Admin Dose 1 APPLIC; Start 05/07/18 at 21:00 Olanzapine (Zyprexa) 5 mg BID PO ; Start 05/09/18 at 21:00; Status Hold Vancomycin/Sodium Chloride 250 ml @ 125 mls/hr Q8H IVPB Last administered on 05/24/18 00:28; Admin Dose 125 MLS/HR; Start 05/16/18 at 17:00 Sodium Chloride 1,000 ml @ 75 mls/hr [id number] IV Last administered on 05/24/18 00:29; Admin Dose 75 MLS/HR; Start 05/17/18 at 15:00 Morphine Sulfate (morphine) 1 mg Q6H PRN IV SEVERE PAIN LEVEL 7-10 Last administered on 05/24/18 07:33; Admin Dose 1 MG; Start 05/19/18 at 14:00 Acetaminophen/ Hydrocodone Bitart ([place] (5/325)) 1 tab Q6H PRN PO MODERATE PAIN LEVEL 4-6 Last administered on 05/22/18 22:31; Admin Dose 1 TAB; Start 05/20/18 at 17:00 Miscellaneous Information (*Rx Drug Level Order Reminder*) VANCOMYCIN TROUGH AT 0800 ONCE ONCE XX ; Start 05/24/18 at 08:00; Stop 05/24/18 at 08:01 PAULA TENORIO May 24, 2018 07:53
[2018-05-24 08:04] VITALS: BP 111/59; PULSE 75; RESP 18
[2018-05-24] MEDS: ZINC OXIDE 20% 30 GM OINT TOP SCH ×3 (09:00→23:58)
[2018-05-24] MEDS: FAMOTIDINE 20 MG TAB PO SCH (09:13)
[2018-05-24] MEDS: ASCORBIC ACID 500 MG TAB PO SCH (09:13)
[2018-05-24] MEDS: MULTIVITAMINS THERAPEUTIC TAB PO SCH (09:13)
[2018-05-24] MEDS: ZINC SULFATE 220 MG CAP PO SCH (09:13)
[2018-05-24] MEDS: COLLAGENASE 5 GM (UD JAR) TOP SCH (09:13)
[2018-05-24] MEDS: GABAPENTIN 300 MG CAP PO SCH ×3 (09:13→20:40)
[2018-05-24] MEDS: HEPARIN 5,000 UNIT/1 ML VIAL SC SCH ×2 (09:17→20:37)
[2018-05-24] MEDS: SODIUM HYPOCHLORITE (1/40) 1 LITER BTL IRR SCH ×2 (09:20→23:57)
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
[2018-05-24 14:22] VITALS: BP 109/60; PULSE 78; RESP 18
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
[2018-05-24 20:00] VITALS: BP 111/58; PULSE 78; RESP 18
[2018-05-24] MEDS: HYDROCODONE/APAP (5/325) TAB PO PRN (20:40)
[2018-05-25] MEDS: VANCOMYCIN 750 MG (PMX) 250 ML IVPB SCH ×2 (00:45→09:21)
[2018-05-25] MEDS: morphine 2 MG INJ IV PRN ×3 (00:45→14:14)
[2018-05-25] MEDS: HYDROCODONE/APAP (5/325) TAB PO PRN (02:53)
[2018-05-25 03:03] VITALS: BP 115/56; PULSE 84; RESP 20
[2018-05-25 08:00] VITALS: BP 109/57; PULSE 61; RESP 17
[2018-05-25] MEDS: ZINC SULFATE 220 MG CAP PO SCH (09:21)
[2018-05-25] MEDS: GABAPENTIN 300 MG CAP PO SCH ×3 (09:21→22:41)
[2018-05-25] MEDS: FAMOTIDINE 20 MG TAB PO SCH (09:21)
[2018-05-25] MEDS: ASCORBIC ACID 500 MG TAB PO SCH (09:21)
[2018-05-25] MEDS: MULTIVITAMINS THERAPEUTIC TAB PO SCH (09:21)
[2018-05-25] MEDS: COLLAGENASE 5 GM (UD JAR) TOP SCH (09:21)
[2018-05-25] MEDS: ZINC OXIDE 20% 30 GM OINT TOP SCH ×3 (09:23→21:00)
[2018-05-25] MEDS: SODIUM HYPOCHLORITE (1/40) 1 LITER BTL IRR SCH ×2 (09:23→22:40)
[2018-05-25] MEDS: HEPARIN 5,000 UNIT/1 ML VIAL SC SCH ×2 (09:26→21:00)
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
[2018-05-25 14:00] VITALS: BP 117/59; PULSE 60; RESP 18
[2018-05-25] MEDS: SOD CHLORIDE 0.45% 1,000 ML IV SCH ×2 (14:14→23:00)
[2018-05-25] MEDS: ZYVOX 600 MG TAB PO SCH ×2 (14:15→22:41)
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
[2018-05-25] MEDS: NYSTATIN 30 GM POWDER BTL TOP SCH ×2 (14:33→22:45)
[2018-05-25 19:53] VITALS: BP 111/61; PULSE 84; RESP 18
[2018-05-25 20:48] VITALS: BP 102/74; PULSE 67; RESP 18
[2018-05-26 02:13] VITALS: BP 123/58; PULSE 68; RESP 18
[2018-05-26] MEDS: SOD CHLORIDE 0.45% 1,000 ML IV SCH (07:33)
[2018-05-26 08:47] VITALS: BP 108/56; PULSE 89; RESP 17
[2018-05-26] MEDS: COLLAGENASE 5 GM (UD JAR) TOP SCH (09:00)
[2018-05-26] MEDS: ZINC OXIDE 20% 30 GM OINT TOP SCH ×3 (09:00→23:09)
[2018-05-26] MEDS: FAMOTIDINE 20 MG TAB PO SCH ×2 (09:01→10:12)
[2018-05-26] MEDS: MULTIVITAMINS THERAPEUTIC TAB PO SCH (09:01)
[2018-05-26] MEDS: GABAPENTIN 300 MG CAP PO SCH ×3 (09:01→23:08)
[2018-05-26] MEDS: ASCORBIC ACID 500 MG TAB PO SCH (09:02)
[2018-05-26] MEDS: ZINC SULFATE 220 MG CAP PO SCH (09:02)
[2018-05-26] MEDS: ZYVOX 600 MG TAB PO SCH ×3 (09:02→23:08)
[2018-05-26] MEDS: HEPARIN 5,000 UNIT/1 ML VIAL SC SCH ×2 (09:05→23:13)
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
[2018-05-26 14:00] VITALS: BP 124/74; PULSE 70; RESP 18
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
[2018-05-26] MEDS: morphine 2 MG INJ IV PRN ×2 (15:08→23:14)
[2018-05-26] MEDS: NYSTATIN 30 GM POWDER BTL TOP SCH ×2 (15:08→23:07)
[2018-05-26] MEDS: SODIUM HYPOCHLORITE (1/40) 1 LITER BTL IRR SCH ×2 (15:09→23:08)
[2018-05-26] MEDS: HYDROCODONE/APAP (5/325) TAB PO PRN (18:45)
[2018-05-26 20:00] VITALS: BP 108/61; PULSE 81; RESP 18
[2018-05-27 02:00] VITALS: BP 119/62; PULSE 57; RESP 18
[2018-05-27] MEDS: morphine 2 MG INJ IV PRN ×2 (06:43→20:51)
[2018-05-27 08:00] VITALS: BP 112/65; PULSE 82; RESP 20
[2018-05-27] MEDS: ZYVOX 600 MG TAB PO SCH ×2 (09:00→21:00)
[2018-05-27] MEDS: GABAPENTIN 300 MG CAP PO SCH ×3 (09:17→20:52)
[2018-05-27] MEDS: MULTIVITAMINS THERAPEUTIC TAB PO SCH (09:17)
[2018-05-27] MEDS: ASCORBIC ACID 500 MG TAB PO SCH (09:17)
[2018-05-27] MEDS: HEPARIN 5,000 UNIT/1 ML VIAL SC SCH ×2 (09:18→20:54)
[2018-05-27] MEDS: ZINC SULFATE 220 MG CAP PO SCH (09:19)
[2018-05-27] MEDS: NYSTATIN 30 GM POWDER BTL TOP SCH ×2 (09:31→20:53)
[2018-05-27] MEDS: SODIUM HYPOCHLORITE (1/40) 1 LITER BTL IRR SCH ×2 (09:31→20:53)
[2018-05-27] MEDS: ZINC OXIDE 20% 30 GM OINT TOP SCH ×3 (09:32→20:54)
[2018-05-27] MEDS: COLLAGENASE 5 GM (UD JAR) TOP SCH (09:32)
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
[2018-05-27 14:00] VITALS: BP 118/64; PULSE 76; RESP 18
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
[2018-05-27 20:24] VITALS: BP 115/79; PULSE 75; RESP 18
[2018-05-27] MEDS ORDERED: VANCOMYCIN IV PER PHARMACY XX SCH (21:30)
[2018-05-27] MEDS ORDERED: VANCOMYCIN 1 GM 250 ML IVPB ONE (22:00)
[2018-05-28 02:05] VITALS: BP 115/76; PULSE 76; RESP 18
[2018-05-28] MEDS: HYDROCODONE/APAP (5/325) TAB PO PRN ×2 (02:17→09:17)
[2018-05-28] MEDS: morphine 2 MG INJ IV PRN ×2 (03:43→20:37)
[2018-05-28] MEDS: VANCOMYCIN 750 MG (PMX) 250 ML IVPB SCH ×3 (05:49→22:16)
[2018-05-28 08:33] VITALS: BP 108/63; PULSE 84; RESP 17
[2018-05-28] MEDS: ZINC SULFATE 220 MG CAP PO SCH (09:17)
[2018-05-28] MEDS: ASCORBIC ACID 500 MG TAB PO SCH (09:17)
[2018-05-28] MEDS: FAMOTIDINE 20 MG TAB PO SCH (09:17)
[2018-05-28] MEDS: GABAPENTIN 300 MG CAP PO SCH ×3 (09:17→20:37)
[2018-05-28] MEDS: MULTIVITAMINS THERAPEUTIC TAB PO SCH (09:17)
[2018-05-28] MEDS: HEPARIN 5,000 UNIT/1 ML VIAL SC SCH ×2 (09:18→20:38)
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
[2018-05-28 14:00] VITALS: BP 108/58; PULSE 73; RESP 17
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
[2018-05-28] MEDS: SODIUM HYPOCHLORITE (1/40) 1 LITER BTL IRR SCH ×2 (15:30→20:39)
[2018-05-28] MEDS: ZINC OXIDE 20% 30 GM OINT TOP SCH ×3 (15:30→16:05)
[2018-05-28] MEDS: NYSTATIN 30 GM POWDER BTL TOP SCH ×2 (15:30→20:39)
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
[2018-05-28 20:40] VITALS: BP 123/70; PULSE 71; RESP 18
[2018-05-29 02:29] VITALS: BP 105/60; PULSE 96; RESP 18
[2018-05-29] MEDS: VANCOMYCIN 750 MG (PMX) 250 ML IVPB SCH (05:40)
[2018-05-29 08:09] VITALS: BP 125/59; PULSE 75; RESP 17
[2018-05-29] MEDS: NYSTATIN 30 GM POWDER BTL TOP SCH ×2 (08:30→20:41)
[2018-05-29] MEDS: SODIUM HYPOCHLORITE (1/40) 1 LITER BTL IRR SCH ×2 (08:30→20:41)
[2018-05-29] MEDS: MULTIVITAMINS THERAPEUTIC TAB PO SCH (08:30)
[2018-05-29] MEDS: ASCORBIC ACID 500 MG TAB PO SCH (08:30)
[2018-05-29] MEDS: FAMOTIDINE 20 MG TAB PO SCH (08:30)
[2018-05-29] MEDS: ZINC SULFATE 220 MG CAP PO SCH (08:30)
[2018-05-29] MEDS: GABAPENTIN 300 MG CAP PO SCH ×3 (08:30→20:32)
[2018-05-29] MEDS: ZINC OXIDE 20% 30 GM OINT TOP SCH ×3 (08:31→20:41)
[2018-05-29] MEDS: HEPARIN 5,000 UNIT/1 ML VIAL SC SCH ×2 (08:33→20:34)
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
[2018-05-29] MEDS ORDERED: VANCOMYCIN HCL 0.85 GM in SOD CHLORIDE 0.9% 250 ML IVPB SCH (14:00)
[2018-05-29 14:43] VITALS: BP 121/67; PULSE 80; RESP 18
[2018-05-29] MEDS: VANCOMYCIN HCL 0.85 GM in SOD CHLORIDE 0.9% 250 ML IVPB SCH (18:27)
[2018-05-29 20:00] VITALS: BP 141/78; PULSE 67; RESP 19
[2018-05-29] MEDS: morphine 2 MG INJ IV PRN (21:41)
[2018-05-30] MEDS: HYDROCODONE/APAP (5/325) TAB PO PRN ×2 (00:36→10:16)
[2018-05-30 02:00] VITALS: BP 130/63; PULSE 66; RESP 19
[2018-05-30] MEDS: VANCOMYCIN HCL 0.85 GM in SOD CHLORIDE 0.9% 250 ML IVPB SCH ×3 (02:40→17:10)
[2018-05-30 08:20] VITALS: BP 122/70; PULSE 70; RESP 18
[2018-05-30] MEDS: ZINC SULFATE 220 MG CAP PO SCH (10:16)
[2018-05-30] MEDS: MULTIVITAMINS THERAPEUTIC TAB PO SCH (10:17)
[2018-05-30] MEDS: GABAPENTIN 300 MG CAP PO SCH ×2 (10:17→16:26)
[2018-05-30] MEDS: ASCORBIC ACID 500 MG TAB PO SCH (10:17)
[2018-05-30] MEDS: FAMOTIDINE 20 MG TAB PO SCH (10:17)
[2018-05-30] MEDS: HEPARIN 5,000 UNIT/1 ML VIAL SC SCH (10:18)
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
[2018-05-30 15:16] VITALS: BP 109/62; PULSE 68; RESP 18
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
[2018-05-30] MEDS: SODIUM HYPOCHLORITE (1/40) 1 LITER BTL IRR SCH (16:26)
[2018-05-30] MEDS: ZINC OXIDE 20% 30 GM OINT TOP SCH ×3 (16:27→17:11)
[2018-05-30] MEDS: morphine 2 MG INJ IV PRN (16:27)
[2018-05-30] MEDS: NYSTATIN 30 GM POWDER BTL TOP SCH (16:28)
[2018-05-30 20:36] VITALS: BP 124/57; PULSE 100; RESP 20
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
[2018-05-31] MEDS: GABAPENTIN 300 MG CAP PO SCH ×4 (00:14→22:54)
[2018-05-31] MEDS: HEPARIN 5,000 UNIT/1 ML VIAL SC SCH ×3 (00:16→22:55)
[2018-05-31] MEDS: morphine 2 MG INJ IV PRN ×2 (02:10→09:58)
[2018-05-31] MEDS: SODIUM HYPOCHLORITE (1/40) 1 LITER BTL IRR SCH ×3 (02:22→21:56)
[2018-05-31] MEDS: ZINC OXIDE 20% 30 GM OINT TOP SCH ×3 (02:22→21:56)
[2018-05-31] MEDS: NYSTATIN 30 GM POWDER BTL TOP SCH ×3 (02:22→21:56)
[2018-05-31] MEDS: VANCOMYCIN HCL 0.85 GM in SOD CHLORIDE 0.9% 250 ML IVPB SCH ×3 (03:10→22:54)
[2018-05-31 03:25] VITALS: BP 118/68; PULSE 70
[2018-05-31 08:22] VITALS: BP 116/66; PULSE 76; RESP 18
[2018-05-31] MEDS: ASCORBIC ACID 500 MG TAB PO SCH (09:54)
[2018-05-31] MEDS: FAMOTIDINE 20 MG TAB PO SCH (09:54)
[2018-05-31] MEDS: MULTIVITAMINS THERAPEUTIC TAB PO SCH (09:54)
[2018-05-31] MEDS: ZINC SULFATE 220 MG CAP PO SCH (09:54)
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
[2018-05-31] MEDS: HYDROCODONE/APAP (5/325) TAB PO PRN (13:43)
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
[2018-05-31 15:07] VITALS: BP 110/60; PULSE 78; RESP 18
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
[2018-05-31 20:00] VITALS: BP 117/56; PULSE 77; RESP 18
[2018-06-01 02:20] VITALS: BP 132/67; PULSE 61; RESP 20
[2018-06-01] MEDS: VANCOMYCIN HCL 0.85 GM in SOD CHLORIDE 0.9% 250 ML IVPB SCH ×3 (06:48→23:28)
[2018-06-01 08:25] VITALS: BP 112/59; PULSE 77; RESP 18
[2018-06-01] MEDS: FAMOTIDINE 20 MG TAB PO SCH (09:12)
[2018-06-01] MEDS: MULTIVITAMINS THERAPEUTIC TAB PO SCH (09:12)
[2018-06-01] MEDS: ASCORBIC ACID 500 MG TAB PO SCH (09:12)
[2018-06-01] MEDS: SODIUM HYPOCHLORITE (1/40) 1 LITER BTL IRR SCH ×2 (09:12→21:14)
[2018-06-01] MEDS: HEPARIN 5,000 UNIT/1 ML VIAL SC SCH ×2 (09:12→21:14)
[2018-06-01] MEDS: ZINC SULFATE 220 MG CAP PO SCH (09:12)
[2018-06-01] MEDS: GABAPENTIN 300 MG CAP PO SCH ×3 (09:12→21:12)
[2018-06-01] MEDS: ZINC OXIDE 20% 30 GM OINT TOP SCH ×3 (09:13→21:16)
[2018-06-01] MEDS: NYSTATIN 30 GM POWDER BTL TOP SCH ×2 (09:13→21:15)
--- NOTE | 2018-06-01 09:41 | PDOCDIS ---
Discharge Instructions CONDITION [id number] Patient Condition: [id number] Stable YA FOX Jun 01, 2018 09:41
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
[2018-06-01 14:00] VITALS: BP 121/66; PULSE 65; RESP 18
[2018-06-01] MEDS ORDERED: HYDROCODONE/APAP (5/325) TAB PO PRN (16:30)
[2018-06-01] MEDS ORDERED: LORAZEPAM 2 MG INJ IV PRN (16:30)
[2018-06-01] MEDS: morphine 2 MG INJ IV PRN (17:00)
[2018-06-01 20:00] VITALS: BP 120/65; PULSE 63; RESP 18
[2018-06-02 02:00] VITALS: BP 125/59; PULSE 60; RESP 18
[2018-06-02] MEDS: VANCOMYCIN HCL 0.85 GM in SOD CHLORIDE 0.9% 250 ML IVPB SCH ×3 (06:35→23:07)
[2018-06-02 08:00] VITALS: BP 105/65; PULSE 100; RESP 18
[2018-06-02 08:28] VITALS: BP 105/65; PULSE 100; RESP 18
[2018-06-02] MEDS: SODIUM HYPOCHLORITE (1/40) 1 LITER BTL IRR SCH ×2 (08:53→21:47)
[2018-06-02] MEDS: NYSTATIN 30 GM POWDER BTL TOP SCH ×2 (08:53→21:47)
[2018-06-02] MEDS: ZINC OXIDE 20% 30 GM OINT TOP SCH ×4 (08:53→21:50)
[2018-06-02] MEDS: GABAPENTIN 300 MG CAP PO SCH ×3 (08:54→21:45)
[2018-06-02] MEDS: MULTIVITAMINS THERAPEUTIC TAB PO SCH (08:54)
[2018-06-02] MEDS: FAMOTIDINE 20 MG TAB PO SCH (08:54)
[2018-06-02] MEDS: ASCORBIC ACID 500 MG TAB PO SCH (08:54)
[2018-06-02] MEDS: ZINC SULFATE 220 MG CAP PO SCH (08:54)
[2018-06-02] MEDS: HEPARIN 5,000 UNIT/1 ML VIAL SC SCH ×2 (08:55→21:46)
[2018-06-02] MEDS: morphine 2 MG INJ IV PRN ×2 (08:55→19:54)
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
[2018-06-02 14:00] VITALS: BP 110/62; PULSE 84; RESP 20
[2018-06-02 20:00] VITALS: BP 108/55; PULSE 89; RESP 18
[2018-06-03 02:00] VITALS: BP 129/67; PULSE 70; RESP 18
[2018-06-03 07:20] VITALS: BP 89/52; PULSE 96; RESP 18
[2018-06-03] MEDS: VANCOMYCIN HCL 0.85 GM in SOD CHLORIDE 0.9% 250 ML IVPB SCH ×3 (08:16→22:28)
[2018-06-03] MEDS: ASCORBIC ACID 500 MG TAB PO SCH (08:19)
[2018-06-03] MEDS: GABAPENTIN 300 MG CAP PO SCH ×3 (08:19→20:49)
[2018-06-03] MEDS: FAMOTIDINE 20 MG TAB PO SCH (08:19)
[2018-06-03] MEDS: MULTIVITAMINS THERAPEUTIC TAB PO SCH (08:19)
[2018-06-03] MEDS: HEPARIN 5,000 UNIT/1 ML VIAL SC SCH ×2 (08:22→20:48)
[2018-06-03] MEDS: ZINC SULFATE 220 MG CAP PO SCH (08:22)
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
[2018-06-03] MEDS: ZINC OXIDE 20% 30 GM OINT TOP SCH ×3 (09:00→20:56)
[2018-06-03] MEDS: morphine 2 MG INJ IV PRN ×2 (10:39→17:01)
[2018-06-03] MEDS ORDERED: IBUPROFEN 600 MG TAB PO SCH (12:00)
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
[2018-06-03] MEDS: HYDROCODONE/APAP (5/325) TAB PO PRN ×2 (13:49→20:54)
[2018-06-03 14:00] VITALS: BP 116/52; PULSE 88; RESP 18
[2018-06-03] MEDS ORDERED: IBUPROFEN 600 MG TAB PO PRN (14:00)
[2018-06-03] MEDS: SODIUM HYPOCHLORITE (1/40) 1 LITER BTL IRR SCH ×2 (14:40→20:55)
[2018-06-03] MEDS: NYSTATIN 30 GM POWDER BTL TOP SCH ×2 (14:40→20:56)
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
[2018-06-03 20:00] VITALS: BP 105/52; PULSE 90; RESP 18
[2018-06-04 03:16] VITALS: BP 116/55; PULSE 77; RESP 20
[2018-06-04] MEDS: morphine 2 MG INJ IV PRN (03:30)
[2018-06-04] MEDS: HYDROCODONE/APAP (5/325) TAB PO PRN ×2 (06:39→14:53)
[2018-06-04] MEDS: VANCOMYCIN HCL 0.85 GM in SOD CHLORIDE 0.9% 250 ML IVPB SCH ×2 (06:39→18:56)
[2018-06-04 07:25] VITALS: BP 104/58; PULSE 101; RESP 18
[2018-06-04] MEDS: GABAPENTIN 300 MG CAP PO SCH ×3 (09:27→21:06)
[2018-06-04] MEDS: HEPARIN 5,000 UNIT/1 ML VIAL SC SCH ×2 (09:27→21:17)
[2018-06-04] MEDS: MULTIVITAMINS THERAPEUTIC TAB PO SCH (09:28)
[2018-06-04] MEDS: ASCORBIC ACID 500 MG TAB PO SCH (09:28)
[2018-06-04] MEDS: FAMOTIDINE 20 MG TAB PO SCH (09:28)
[2018-06-04] MEDS: ZINC SULFATE 220 MG CAP PO SCH (09:28)
[2018-06-04] MEDS: SODIUM HYPOCHLORITE (1/40) 1 LITER BTL IRR SCH ×2 (09:31→21:07)
[2018-06-04] MEDS: NYSTATIN 30 GM POWDER BTL TOP SCH ×2 (09:32→21:07)
[2018-06-04] MEDS: ZINC OXIDE 20% 30 GM OINT TOP SCH ×3 (09:32→21:07)
[2018-06-04 14:20] VITALS: BP 128/67; PULSE 78; RESP 16
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
[2018-06-04 19:30] VITALS: BP 117/59; PULSE 83; RESP 18
[2018-06-04] MEDS: ZYVOX 600 MG TAB PO SCH (21:06)
[2018-06-05 01:55] VITALS: BP 143/66; PULSE 65; RESP 17
[2018-06-05 08:50] VITALS: BP 113/57; PULSE 97; RESP 17
[2018-06-05] MEDS: ZINC SULFATE 220 MG CAP PO SCH (08:55)
[2018-06-05] MEDS: ASCORBIC ACID 500 MG TAB PO SCH (08:55)
[2018-06-05] MEDS: ZYVOX 600 MG TAB PO SCH (08:55)
[2018-06-05] MEDS: MULTIVITAMINS THERAPEUTIC TAB PO SCH (08:55)
[2018-06-05] MEDS: morphine 2 MG INJ IV PRN ×3 (08:55→21:39)
[2018-06-05] MEDS: FAMOTIDINE 20 MG TAB PO SCH (08:55)
[2018-06-05] MEDS: GABAPENTIN 300 MG CAP PO SCH ×3 (08:55→21:38)
[2018-06-05] MEDS: NYSTATIN 30 GM POWDER BTL TOP SCH ×2 (08:56→21:49)
[2018-06-05] MEDS: ZINC OXIDE 20% 30 GM OINT TOP SCH ×3 (08:56→21:49)
[2018-06-05] MEDS: SODIUM HYPOCHLORITE (1/40) 1 LITER BTL IRR SCH ×2 (08:56→21:48)
[2018-06-05] MEDS: HEPARIN 5,000 UNIT/1 ML VIAL SC SCH ×2 (08:57→21:43)
[2018-06-05] MEDS: HYDROCODONE/APAP (5/325) TAB PO PRN (13:45)
[2018-06-05 14:00] VITALS: BP 94/50; PULSE 106; RESP 17
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
[2018-06-05] MEDS ORDERED: VANCOMYCIN IV PER PHARMACY XX SCH (14:30)
[2018-06-05] MEDS: SOD CHLORIDE 0.45% 1,000 ML IV SCH (15:33)
[2018-06-05] MEDS: VANCOMYCIN HCL 0.85 GM in SOD CHLORIDE 0.9% 250 ML IVPB SCH (16:00)
[2018-06-05 20:05] VITALS: BP 109/60; PULSE 81; RESP 18
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
[2018-06-06] MEDS: VANCOMYCIN HCL 0.85 GM in SOD CHLORIDE 0.9% 250 ML IVPB SCH (00:22)
[2018-06-06 01:55] VITALS: BP 105/56; PULSE 88; RESP 17
[2018-06-06] MEDS: SOD CHLORIDE 0.45% 1,000 ML IV SCH (04:20)
[2018-06-06] MEDS: HYDROCODONE/APAP (5/325) TAB PO PRN ×2 (07:45→21:30)
[2018-06-06 08:32] VITALS: BP 113/58; PULSE 87; RESP 18
[2018-06-06] MEDS: ASCORBIC ACID 500 MG TAB PO SCH (08:51)
[2018-06-06] MEDS: MULTIVITAMINS THERAPEUTIC TAB PO SCH (08:51)
[2018-06-06] MEDS: FAMOTIDINE 20 MG TAB PO SCH (08:51)
[2018-06-06] MEDS: ZINC SULFATE 220 MG CAP PO SCH (08:51)
[2018-06-06] MEDS: GABAPENTIN 300 MG CAP PO SCH ×3 (08:51→21:30)
[2018-06-06] MEDS: HEPARIN 5,000 UNIT/1 ML VIAL SC SCH ×2 (08:52→21:31)
[2018-06-06] MEDS: NYSTATIN 30 GM POWDER BTL TOP SCH ×2 (08:53→21:34)
[2018-06-06] MEDS: ZINC OXIDE 20% 30 GM OINT TOP SCH ×3 (08:53→21:34)
[2018-06-06] MEDS: SODIUM HYPOCHLORITE (1/40) 1 LITER BTL IRR SCH ×2 (09:00→21:34)
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
[2018-06-06 14:52] VITALS: BP 116/60; PULSE 80; RESP 18
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
[2018-06-06 20:00] VITALS: BP 120/64; PULSE 86; RESP 18
[2018-06-06] MEDS: ZYVOX 600 MG TAB PO SCH (21:30)
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
[2018-06-07 02:00] VITALS: BP 110/62; PULSE 82; RESP 18
[2018-06-07 08:24] VITALS: BP 128/56; PULSE 76; RESP 20
[2018-06-07] MEDS: SODIUM HYPOCHLORITE (1/40) 1 LITER BTL IRR SCH ×3 (09:00→20:28)
[2018-06-07] MEDS: ZINC OXIDE 20% 30 GM OINT TOP SCH ×5 (09:00→20:27)
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
[2018-06-07] MEDS: ZINC SULFATE 220 MG CAP PO SCH (09:55)
[2018-06-07] MEDS: ZYVOX 600 MG TAB PO SCH ×2 (09:55→20:29)
[2018-06-07] MEDS: MULTIVITAMINS THERAPEUTIC TAB PO SCH (09:55)
[2018-06-07] MEDS: FAMOTIDINE 20 MG TAB PO SCH (09:55)
[2018-06-07] MEDS: GABAPENTIN 300 MG CAP PO SCH ×3 (09:55→20:29)
[2018-06-07] MEDS: HEPARIN 5,000 UNIT/1 ML VIAL SC SCH ×2 (09:55→20:32)
[2018-06-07] MEDS: ASCORBIC ACID 500 MG TAB PO SCH (09:55)
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
[2018-06-07 14:00] VITALS: BP 124/62; PULSE 76; RESP 20
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
[2018-06-07] MEDS: HYDROCODONE/APAP (5/325) TAB PO PRN (16:32)
[2018-06-07 21:01] VITALS: BP 98/54; PULSE 98; RESP 18
[2018-06-08 02:11] VITALS: BP 107/53; PULSE 78; RESP 18
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
[2018-06-08 07:56] VITALS: BP 136/73; PULSE 53; RESP 18
[2018-06-08] MEDS: HYDROCODONE/APAP (5/325) TAB PO PRN ×3 (08:15→22:17)
[2018-06-08] MEDS: ZINC OXIDE 20% 30 GM OINT TOP SCH ×2 (09:00→09:42)
[2018-06-08] MEDS: HEPARIN 5,000 UNIT/1 ML VIAL SC SCH ×2 (09:00→21:51)
[2018-06-08] MEDS: ZYVOX 600 MG TAB PO SCH ×2 (09:39→21:47)
[2018-06-08] MEDS: ASCORBIC ACID 500 MG TAB PO SCH (09:39)
[2018-06-08] MEDS: GABAPENTIN 300 MG CAP PO SCH ×3 (09:39→21:47)
[2018-06-08] MEDS: FAMOTIDINE 20 MG TAB PO SCH (09:39)
[2018-06-08] MEDS: ZINC SULFATE 220 MG CAP PO SCH (09:39)
[2018-06-08] MEDS: MULTIVITAMINS THERAPEUTIC TAB PO SCH (09:39)
[2018-06-08] MEDS: SODIUM HYPOCHLORITE (1/40) 1 LITER BTL IRR SCH (09:42)
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
[2018-06-08 15:15] VITALS: BP 123/65; PULSE 68; RESP 18
[2018-06-08 20:11] VITALS: BP 101/55; PULSE 98; RESP 18
[2018-06-08] MEDS ORDERED: PIPER-TAZO 3.375 GM IV (PMX) 0 ML ONE (20:20)
[2018-06-09] MEDS: BACLOFEN 10 MG TAB PO SCH ×4 (00:21→20:59)
[2018-06-09 02:00] VITALS: BP 126/60; PULSE 72; RESP 18
[2018-06-09 08:05] VITALS: BP 118/62; PULSE 78; RESP 18
[2018-06-09] MEDS: ZINC OXIDE 20% 30 GM OINT TOP SCH ×3 (09:00→16:34)
[2018-06-09] MEDS: ZYVOX 600 MG TAB PO SCH ×2 (09:34→20:59)
[2018-06-09] MEDS: FAMOTIDINE 20 MG TAB PO SCH (09:34)
[2018-06-09] MEDS: ZINC SULFATE 220 MG CAP PO SCH (09:34)
[2018-06-09] MEDS: GABAPENTIN 300 MG CAP PO SCH ×3 (09:34→20:59)
[2018-06-09] MEDS: HYDROCODONE/APAP (5/325) TAB PO PRN ×2 (09:34→16:32)
[2018-06-09] MEDS: ASCORBIC ACID 500 MG TAB PO SCH (09:34)
[2018-06-09] MEDS: MULTIVITAMINS THERAPEUTIC TAB PO SCH (09:34)
[2018-06-09] MEDS: HEPARIN 5,000 UNIT/1 ML VIAL SC SCH ×2 (09:40→21:09)
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
[2018-06-09 13:45] VITALS: BP 123/67; PULSE 80; RESP 18
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
[2018-06-09] MEDS: SODIUM HYPOCHLORITE (1/40) 1 LITER BTL IRR SCH (16:32)
[2018-06-09 20:06] VITALS: BP 110/64; PULSE 101; RESP 18
[2018-06-10 02:20] VITALS: BP 114/62; PULSE 102; RESP 18
[2018-06-10 08:00] VITALS: BP 116/64; PULSE 100; RESP 18
[2018-06-10] MEDS: ZINC OXIDE 20% 30 GM OINT TOP SCH ×3 (09:00→23:05)
[2018-06-10] MEDS: SODIUM HYPOCHLORITE (1/40) 1 LITER BTL IRR SCH ×3 (09:00→23:04)
[2018-06-10] MEDS: morphine 2 MG INJ IV PRN (10:28)
[2018-06-10] MEDS: GABAPENTIN 300 MG CAP PO SCH ×3 (10:28→20:37)
[2018-06-10] MEDS: HEPARIN 5,000 UNIT/1 ML VIAL SC SCH ×2 (10:28→20:40)
[2018-06-10] MEDS: ZYVOX 600 MG TAB PO SCH ×2 (10:28→20:37)
[2018-06-10] MEDS: ASCORBIC ACID 500 MG TAB PO SCH (10:29)
[2018-06-10] MEDS: BACLOFEN 10 MG TAB PO SCH ×3 (10:29→20:39)
[2018-06-10] MEDS: FAMOTIDINE 20 MG TAB PO SCH (10:29)
[2018-06-10] MEDS: ZINC SULFATE 220 MG CAP PO SCH (10:29)
[2018-06-10] MEDS: MULTIVITAMINS THERAPEUTIC TAB PO SCH (10:29)
[2018-06-10] MEDS: HYDROCODONE/APAP (5/325) TAB PO PRN ×2 (10:49→19:01)
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
[2018-06-10 14:54] VITALS: BP 104/52; PULSE 79; RESP 18
[2018-06-10 20:00] VITALS: BP 101/59; PULSE 116; RESP 18
[2018-06-10] MEDS: ACETAMINOPHEN 325 MG TAB PO PRN (20:38)
[2018-06-10 23:00] VITALS: PULSE 74
[2018-06-11] MEDS ORDERED: HYDROCORTISONE 1% 28 GM CR TOP PRN (01:00)
[2018-06-11 02:00] VITALS: BP 123/59; PULSE 73; RESP 18
[2018-06-11] MEDS: HYDROCORTISONE 1% 28 GM CR TOP PRN ×2 (05:12→16:47)
[2018-06-11 08:00] VITALS: BP 127/65; PULSE 83; RESP 16
[2018-06-11] MEDS: ASCORBIC ACID 500 MG TAB PO SCH (09:26)
[2018-06-11] MEDS: ZINC SULFATE 220 MG CAP PO SCH (09:26)
[2018-06-11] MEDS: ZYVOX 600 MG TAB PO SCH ×2 (09:26→20:55)
[2018-06-11] MEDS: MULTIVITAMINS THERAPEUTIC TAB PO SCH (09:26)
[2018-06-11] MEDS: GABAPENTIN 300 MG CAP PO SCH ×3 (09:26→20:55)
[2018-06-11] MEDS: FAMOTIDINE 20 MG TAB PO SCH (09:26)
[2018-06-11] MEDS: ZINC OXIDE 20% 30 GM OINT TOP SCH ×3 (09:29→20:55)
[2018-06-11] MEDS: SODIUM HYPOCHLORITE (1/40) 1 LITER BTL IRR SCH ×3 (09:33→21:21)
[2018-06-11] MEDS: BACLOFEN 10 MG TAB PO SCH ×3 (09:33→20:55)
[2018-06-11] MEDS: HEPARIN 5,000 UNIT/1 ML VIAL SC SCH ×2 (09:37→20:57)
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
[2018-06-11 15:25] VITALS: BP 121/67; PULSE 101; RESP 17
[2018-06-11] MEDS: HYDROCODONE/APAP (5/325) TAB PO PRN (17:19)
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
[2018-06-11 20:52] VITALS: BP 94/53; PULSE 91; RESP 18
[2018-06-12 02:00] VITALS: BP 110/54; PULSE 97; RESP 18
[2018-06-12] MEDS: ACETAMINOPHEN 325 MG TAB PO PRN (02:59)
[2018-06-12] MEDS: ZYVOX 600 MG TAB PO SCH ×2 (08:36→20:56)
[2018-06-12] MEDS: FAMOTIDINE 20 MG TAB PO SCH (08:36)
[2018-06-12] MEDS: ZINC SULFATE 220 MG CAP PO SCH (08:36)
[2018-06-12] MEDS: ASCORBIC ACID 500 MG TAB PO SCH (08:36)
[2018-06-12] MEDS: MULTIVITAMINS THERAPEUTIC TAB PO SCH (08:36)
[2018-06-12] MEDS: HEPARIN 5,000 UNIT/1 ML VIAL SC SCH ×2 (08:37→21:01)
[2018-06-12] MEDS: BACLOFEN 10 MG TAB PO SCH ×3 (08:37→20:56)
[2018-06-12] MEDS: GABAPENTIN 300 MG CAP PO SCH ×3 (08:37→20:56)
[2018-06-12] MEDS: SODIUM HYPOCHLORITE (1/40) 1 LITER BTL IRR SCH ×3 (08:40→22:36)
[2018-06-12] MEDS: ZINC OXIDE 20% 30 GM OINT TOP SCH ×3 (08:42→21:00)
[2018-06-12 08:49] VITALS: BP 106/53; PULSE 81; RESP 17
[2018-06-12] MEDS: HYDROCODONE/APAP (5/325) TAB PO PRN ×2 (08:53→14:54)
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
[2018-06-12 14:00] VITALS: BP 102/60; PULSE 90; RESP 17
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
[2018-06-12 21:31] VITALS: BP 120/68; PULSE 84; RESP 18
[2018-06-13 02:45] VITALS: BP 97/54; PULSE 95; RESP 18
[2018-06-13 08:52] VITALS: BP 103/57; PULSE 95; RESP 18
[2018-06-13] MEDS: ZINC SULFATE 220 MG CAP PO SCH (09:51)
[2018-06-13] MEDS: GABAPENTIN 300 MG CAP PO SCH ×3 (09:51→21:08)
[2018-06-13] MEDS: ASCORBIC ACID 500 MG TAB PO SCH (09:51)
[2018-06-13] MEDS: MULTIVITAMINS THERAPEUTIC TAB PO SCH (09:51)
[2018-06-13] MEDS: HEPARIN 5,000 UNIT/1 ML VIAL SC SCH ×2 (09:51→21:10)
[2018-06-13] MEDS: ZYVOX 600 MG TAB PO SCH ×2 (09:51→21:08)
[2018-06-13] MEDS: FAMOTIDINE 20 MG TAB PO SCH (09:51)
[2018-06-13] MEDS: BACLOFEN 10 MG TAB PO SCH ×3 (09:51→21:09)
[2018-06-13] MEDS: SODIUM HYPOCHLORITE (1/40) 1 LITER BTL IRR SCH ×2 (09:52→14:10)
[2018-06-13] MEDS: ZINC OXIDE 20% 30 GM OINT TOP SCH ×2 (09:53→11:51)
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
[2018-06-13 15:49] VITALS: BP 112/61; PULSE 95; RESP 18
[2018-06-13 19:57] VITALS: BP 122/75; PULSE 104; RESP 17
[2018-06-14] MEDS: ZINC OXIDE 20% 30 GM OINT TOP SCH (00:48)
[2018-06-14] MEDS: SODIUM HYPOCHLORITE (1/40) 1 LITER BTL IRR SCH ×2 (00:48→10:00)
[2018-06-14 02:20] VITALS: BP 116/63; PULSE 61; RESP 17
[2018-06-14] MEDS ORDERED: LEVOFLOXACIN 500 MG TAB PO SCH (06:00)
[2018-06-14 07:59] VITALS: BP 139/69; PULSE 69; RESP 17
[2018-06-14] MEDS: ZYVOX 600 MG TAB PO SCH (09:07)
[2018-06-14] MEDS: MULTIVITAMINS THERAPEUTIC TAB PO SCH (09:07)
[2018-06-14] MEDS: BACLOFEN 10 MG TAB PO SCH ×2 (09:07→13:45)
[2018-06-14] MEDS: GABAPENTIN 300 MG CAP PO SCH ×2 (09:07→13:46)
[2018-06-14] MEDS: ASCORBIC ACID 500 MG TAB PO SCH (09:07)
[2018-06-14] MEDS: FAMOTIDINE 20 MG TAB PO SCH (09:07)
[2018-06-14] MEDS: ZINC SULFATE 220 MG CAP PO SCH (09:08)
[2018-06-14] MEDS: HEPARIN 5,000 UNIT/1 ML VIAL SC SCH (09:31)
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
[2018-06-14] MEDS: HYDROCODONE/APAP (5/325) TAB PO PRN (13:46)
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
[2018-06-14 14:09] VITALS: BP 109/67; PULSE 79; RESP 18
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
== END 2018-06-14 17:30 | disposition left against medical advice (07) | DRG 593 ==
LOC: FTE 01:21 → PP2 08:59
PROVIDERS: ADMIT Hospitalist; ATTEND Hospitalist
DX: L89.224 Pressure ulcer of left hip, stage 4 (principal); G82.20 Paraplegia, unspecified; M86.9 Osteomyelitis, unspecified; N39.0 Urinary tract infection, site not specified; L08.9 Local infection of the skin and subcutaneous tissue, unspecified; L89.214 Pressure ulcer of right hip, stage 4; L89.621 Pressure ulcer of left heel, stage 1; L89.611 Pressure ulcer of right heel, stage 1; L89.314 Pressure ulcer of right buttock, stage 4; M21.6X2 Other acquired deformities of left foot; M21.6X1 Other acquired deformities of right foot; D64.9 Anemia, unspecified; D72.829 Elevated white blood cell count, unspecified; D47.3 Essential (hemorrhagic) thrombocythemia; F29 Unspecified psychosis not due to a substance or known physiological condition; F20.9 Schizophrenia, unspecified; M25.552 Pain in left hip; M25.551 Pain in right hip; B95.62 Methicillin resistant Staphylococcus aureus infection as the cause of diseases classified elsewhere; B96.89 Other specified bacterial agents as the cause of diseases classified elsewhere; S24.104S Unspecified injury at T11-T12 level of thoracic spinal cord, sequela; V03.10XS Pedestrian on foot injured in collision with car, pick-up truck or van in traffic accident, sequela; Z76.5 Malingerer [conscious simulation]; Z91.19 Patient's noncompliance with other medical treatment and regimen; Z93.3 Colostomy status
CPT/HCPCS: 36415; 71045; 72196; 72220; 73520; 73610; 73721; 80048; 80053; 80061; 80202; 82565; 83036; 83605; 83735; 84100; 84439; 84443; 84520; 85025; 85610; 85730; 87070; 87086; 97162; J1644; J2270; J2405; J2543; J3370; J7030; J7050